=== PATIENT | female | born 1935 | race American Indian/Alaskan Native ===

== ENCOUNTER 2016-11-23 16:57 | Emergency (ER) | payer MEDICARE ==
[2016-11-23 17:25] VITALS: PULSE 93; TEMP 99.2; O2SAT 97
[2016-11-23] MEDS ORDERED: Oxycodone/Acetaminophen 5/325 mg Tab PO STA (17:58)
--- NOTE | 2016-11-23 17:59 | ED PDOC ---
Arrival/HPI - General Chief Complaint: Back Pain Time Seen by Provider: 11/23/16 17:27 Historian: Patient - History of Present Illness Narrative History of Present Illness (Text): 11/23/16 17:59 81 year old female with a past medical history that includes arthritis presents to the emergency department with chronic arthritis pain in the lower extremities for the past four months. Patient states she takes Naproxen which does not help always. Patient explains she lives at home alone and it is difficult to get around due to the pain. Denies urinary symptoms, vomiting, or fever. Time/Duration: > month Symptom Onset: Gradual Symptom Course: Unchanged Modifying Factors (Text): None Associated Symptoms (Text): None Past Medical History - Provider Review Nursing Documentation Reviewed: Yes - Cardiac Hx Hypertension: Yes - Musculoskeletal/Rheumatological Hx Arthritis: Yes - Psychiatric Hx Substance Use: No Family/Social History - Physician Review Nursing Documentation Reviewed: Yes Family/Social History: Unknown Family HX Smoking Status: Never Smoked Hx Alcohol Use: No Hx Substance Use: No Allergies/Home Meds Allergies/Adverse Reactions: Allergies No Known Allergies Allergy (Verified 11/23/16 17:21) Review of Systems - Physician Review All systems were reviewed & negative as marked: Yes - Review of Systems Respiratory: absent: SOB Gastrointestinal: absent: Vomiting Genitourinary Female: absent: Dysuria, Frequency, Hematuria Musculoskeletal: Other (lower extremity pain) Physical Exam - Physical Exam Narrative Physical Exam (Text): Constitutional: No acute distress. Head: Normocephalic. Atraumatic. Eyes: PERRL. ENT: Moist mucous membranes. Neck: Supple. Cardiovascular: Regular rate. Chest: No tenderness. Respiratory: Clear to auscultation bilaterally. GI: Soft. Nontender. Nondistended. Back: No CVA tenderness. No midline tenderness. Musculoskeletal: FROM x 4. Skin: No rash. Neurologic: Alert, no focal deficit. Motor intact x4. Vital Signs Reviewed: Yes Vital Signs Temp Pulse Resp BP Pulse Ox 11/23/16 17:23 99.2 F 93 H 18 140/69 97 Temperature: Afebrile Blood Pressure: Normal Pulse: Regular Respiratory Rate: Normal Appearance: Positive for: Well-Appearing, Non-Toxic, Comfortable Pain Distress: None Mental Status: Positive for: Alert and Oriented X 3 Medical Decision Making ED Course and Treatment: Impression: 81 year old female with history of arthritis presents with chronic arthritis pain in the lower extremities for 4 months. Plan: -- Percocet -- Reassess and disposition Prior Visits: Notes and results from previous visits were reviewed. Patient last seen in the ED on 05/03/16 for lower extremity pain and discharged with Percocet. Progress Notes: Patient states her daughter will be coming to take her home. Advised patient on the risks of taking narcotic medication including addiction and sedation and told her that she will have to follow up with PMD or pain management for further treatment. Patient verbally expressed understanding. Daughter at bedside understands and will have patient f/u with pain management. - Medication Orders Current Medication Orders: Discontinued Medications Oxycodone/Acetaminophen (Percocet 5/325 Mg Tab) 1 tab PO STAT STA Stop: 11/23/16 17:59 Last Admin: 11/23/16 18:07 Dose: 1 TAB - Scribe Statement The provider has reviewed the documentation as recorded by the Eduin Rice Provider Scribe Attestation: All medical record entries made by the Eduin were at my direction and personally dictated by me. I have reviewed the chart and agree that the record accurately reflects my personal performance of the history, physical exam, medical decision making, and the department course for this patient. I have also personally directed, reviewed, and agree with the discharge instructions and disposition. Disposition/Present on Arrival - Present on Arrival Any Indicators Present on Arrival: No History of DVT/PE: No History of Uncontrolled Diabetes: No Urinary Catheter: No History of Decub. Ulcer: No History Surgical Site Infection Following: None - Disposition Have Diagnosis and Disposition been Completed?: Yes Diagnosis: Arthritis Disposition: HOME/ ROUTINE Disposition Time: 19:10 Patient Plan: Discharge Condition: STABLE Discharge Instructions (ExitCare): Chronic Pain (ED) Prescriptions: oxyCODONE/Acetaminophen [Percocet 5/325 mg Tab] 1 tab PO Q6 #10 tab
[2016-11-23 19:25] VITALS: BP 126/65; RESP 19
== END 2016-11-23 19:26 | disposition home or self-care (01) ==
LOC: ED 16:57
DX: M13.88 Other specified arthritis, other site (principal)

== ENCOUNTER 2016-11-28 14:08 | Inpatient (IN) | payer MEDICARE ==
[2016-11-28 14:16] VITALS: BMI 23.3
[2016-11-28] MEDS ORDERED: Sodium Chloride 0.9% 1,000 ML IV STA (14:36)
--- NOTE | 2016-11-28 14:54 | ED PDOC ---
Arrival/HPI - General Chief Complaint: Altered Mental Status Time Seen by Provider: 11/28/16 14:35 Historian: Patient, Family (Son) - History of Present Illness Narrative History of Present Illness (Text): 11/28/16 14:46 81 year old female presents to the emergency department after reported seizure like episode prior to arrival. Son describes 3-4 minutes of generalized shaking. Son states he caught the patient before she hit the ground. Patient does not remember the episode. Patient denies any complaints at this time. Time/Duration: Prior to Arrival Symptom Onset: Sudden Symptom Course: Unchanged Modifying Factors (Text): None Associated Symptoms (Text): None Past Medical History - Provider Review Nursing Documentation Reviewed: Yes - Cardiac Hx Cardiac Disorders: Yes Hx Hypertension: Yes - Pulmonary Hx Respiratory Disorders: No - Neurological Hx Neurological Disorder: No - HEENT Hx HEENT Disorder: No - Renal Hx Renal Disorder: No - Endocrine/Metabolic Hx Endocrine Disorders: No - Hematological/Oncological Hx Blood Disorders: No - Musculoskeletal/Rheumatological Hx Musculoskeletal Disorders: Yes Hx Arthritis: Yes - Gastrointestinal Hx Gastrointestinal Disorders: No - Genitourinary/Gynecological Hx Genitourinary Disorders: No - Psychiatric Hx Psychophysiologic Disorder: No Hx Substance Use: No Family/Social History - Physician Review Nursing Documentation Reviewed: Yes Family/Social History: Unknown Family HX Smoking Status: Never Smoked Hx Alcohol Use: No Hx Substance Use: No Allergies/Home Meds Allergies/Adverse Reactions: Allergies No Known Allergies Allergy (Verified 11/23/16 17:21) Review of Systems - Physician Review All systems were reviewed & negative as marked: Yes Physical Exam - Physical Exam Narrative Physical Exam (Text): - Review of Systems Constitutional: Normal. absent: Fatigue, Weight Change, Fevers Eyes: Normal ENT: Normal Respiratory: Normal absent: SOB, Cough, Sputum Cardiovascular: Normal absent: Chest pain, Palpitations, Syncope Gastrointestinal: Normal absent: Abdominal pain, Diarrhea, Nausea, Vomiting Genitourinary: Normal. absent: Dysuria, Frequency, Hematuria Musculoskeletal: Normal. absent: Arthralgias, Back Pain, Neck Pain Skin: Normal Neurological: Seizure absent: Focal Weakness Endocrine: Normal Hemo/Lymphatic: Normal Psychiatric: Normal - Physical exam Patient appears age appropriate, speaking full sentences without difficulty - Systems Exam Head: Present: Atraumatic, Normocephalic Pupils: Present: PERRL Extraocular Muscles: Present: EOMI Conjunctiva: Present: Normal Mouth: Present: Moist Mucous Membranes Neck: Present: Normal Range of Motion. No: MIDLINE TENDERNESS, Paraspinal Tenderness Respiratory/Chest: Present: Clear to Auscultation, Good Air Exchange. No: Respiratory Distress, Accessory Muscle Use, Tachypneic Cardiovascular: Present: Regular Rate and Rhythm, Normal S1, S2, Peripheral Pulses Present. No: Murmurs Abdomen: Present: Normal Bowel Sounds, No: Tenderness, Peritoneal Signs, Rebound, Guarding, Distention Back: Present: Normal Inspection. No: Midline Tenderness, Paraspinal Tenderness Upper Extremity: Present: Normal Inspection. No: Cyanosis, Edema Lower Extremity: Present: Trace non-pitting edema bilaterally, L>R Neurological: Present: GCS=15, Speech Normal, cranial nerves II through XII fully intact with no cerebellar abnormality, neuro-sensory fully intact. No focal neurological deficits. Skin: Present: Warm, Dry, Normal Color. No: Rashes Lymphatic: Present: OX3, NI, NC Psychiatric: Present: Alert, Oriented x 3, Normal Insight, Normal Concentration Vital Signs Reviewed: Yes Vital Signs Temp Pulse Resp BP Pulse Ox 11/28/16 15:56 85 20 148/73 98 11/28/16 14:16 98.5 F 80 17 133/64 Temperature: Afebrile Blood Pressure: Normal Pulse: Regular Respiratory Rate: Normal Appearance: Positive for: Well-Appearing, Non-Toxic, Comfortable Pain Distress: None Mental Status: Positive for: Alert and Oriented X 3 Finger Stick Blood Glucose: 116 Medical Decision Making ED Course and Treatment: Impression: 81 year old female presents to the emergency department after reported seizure like episode prior to arrival. On physical exam, patient has trace non-pitting edema bilaterally, L>R. No tongue injury noted, no focal neurological deficits Differential Diagnosis included but are not limited to: Syncope vs seizure Plan: -- CT Head, Chest X-ray -- IV fluids -- Labs -- Reassess and disposition Prior Visits: Notes and results from previous visits were reviewed. Patient last seen in the ED on 11/23/16 for chronic lower extremity pain and discharged home. Progress Notes: EKG shows NSR at [address]-segment elevations, normal intervals. Interpreted by me. 11/28/16 18:12 dw HERMEL DELOR, states pt has +LLE DVT pt denies any cp/sob/san. lovenox ordered Chest xray interpreted by ED physician shows no pneumothorax, no cardiomegaly, no infiltrates 11/28/16 18:31 pt states she has no PMD at [facility]. Dr. Herbert marti, awaiting callback pt and daughter aware of and agree with admission plan 11/28/16 18:[address] Godinez, agrees with admission to his service, asked for CTA. order placed. - Lab Interpretations Lab Results: 11/28/16 15:33 11/28/16 15:33 Lab Results 11/28/16 15:33: WBC 9.4, RBC 3.82, Hgb 11.7 L, Hct 36.0, MCV 94.2, MCH 30.6, MCHC 32.5, RDW 13.1, Plt Count 326, MPV 9.6, Gran % 80.7 H, Lymph % (Auto) 12.2 L, [place] % (Auto) 6.3 H, Eos % (Auto) 0.7 L, Baso % (Auto) 0.1, Gran # 7.57 H, Lymph # 1.2, [place] # 0.6, Eos # 0.1, Baso # 0.01, PT 10.7, INR 0.99, APTT 27.2, Sodium 137, Potassium 3.9, Chloride 96 L, Carbon Dioxide 30, Anion Gap 15, BUN 10, Creatinine 1.0, Est GFR ( Amer) > 60, Est GFR (Non-Af Amer) 53, Random Glucose 116 H, Calcium 9.4, Total Bilirubin 1.2, AST 68 H, ALT 35, Alkaline Phosphatase 284 H, Lactate Dehydrogenase 656, Total Creatine Kinase 41 , Troponin I < 0.01, NT-Pro-B Natriuret Pep 97.4, Total Protein 8.5 H, Albumin 3.9, Globulin 4.7, Albumin/Globulin Ratio 0.8 L - RAD Interpretation Radiology Orders: 11/28/16 14:35 HEAD W/O CONTRAST [CT] Stat 11/28/16 14:36 CHEST ONE VIEW [RAD] Stat 11/28/16 15:51 DUPLEX LOWER EXTRM VEIN BILAT [US] Stat 11/28/16 18:46 ANGIO CHEST PE PROTOCOL [CT] Stat - EKG Interpretation Interpreted by ED Physician: Yes Type: 12 lead EKG - Medication Orders Current Medication Orders: Discontinued Medications Enoxaparin Sodium (Lovenox) 60 mg SC STAT STA PRN Reason: Protocol Stop: 11/28/16 18:12 Sodium Chloride (Sodium Chloride 0.9%) 1,000 mls @ 1,000 mls/hr IV .Q1H STA Stop: 11/28/16 15:35 Last Admin: 11/28/16 16:14 Dose: 1,000 MLS/HR eMAR Start Stop Document 11/28/16 16:14 OCS (Rec: 11/28/16 16:14 OCS [id number]) Intravenous Solution Start Date 11/28/16 Start Time 16:14 - Scribe Statement The provider has reviewed the documentation as recorded by the Eduin Rice Provider Scribe Attestation: All medical record entries made by the Danitaibe were at my direction and personally dictated by me. I have reviewed the chart and agree that the record accurately reflects my personal performance of the history, physical exam, medical decision making, and the department course for this patient. I have also personally directed, reviewed, and agree with the discharge instructions and disposition. Disposition/Present on Arrival - Present on Arrival Any Indicators Present on Arrival: No History of DVT/PE: No History of Uncontrolled Diabetes: No Urinary Catheter: No History of Decub. Ulcer: No History Surgical Site Infection Following: None - Disposition Have Diagnosis and Disposition been Completed?: Yes Diagnosis: Deep vein thrombosis (DVT), Syncope Disposition: HOSPITALIZED Disposition Time: 18:51 Patient Plan: Admission Condition: FAIR Discharge Instructions (ExitCare): Syncope (ED)
[2016-11-28 15:47] LABS: ADD MANUAL DIFF? NO
[2016-11-28 16:09] LABS: ALB/GLOB RATIO 0.8 (1.1-1.8); ALKALINE PHOSPHATASE 284 U/L (38-133); ALT/SGPT 35 U/L (7-56); AST/SGOT 68 U/L (15-39); BILIRUBIN,TOTAL 1.2 mg/dL (0.2-1.3); BLOOD UREA NITROGEN 10 mg/dL (7-21); CALCIUM 9.4 mg/dL (8.4-10.5); CARBON DIOXIDE 30 mmol/L (21-33); CHLORIDE 96 mmol/L (98-107); GFR AFRICAN-AMERICAN > 60; GLUCOSE,RANDOM 116 mg/dL (70-110); POTASSIUM 3.9 mmol/L (3.6-5.0); SODIUM 137 mmol/L (132-148); TOTAL PROTEIN 8.5 g/dL (5.8-8.3)
[2016-11-28 16:11] LABS: BASO # 0.01 K/mm3 (0.0-2.0); BASO % 0.1 % (0.0-3.0); EOS # 0.1 (0.0-0.7); EOS % 0.7 % (1.5-5.0); GRAN # 7.57 (1.4-6.5); GRAN % 80.7 % (50.0-68.0); LYMPH # 1.2 (1.2-3.4); LYMPH % 12.2 % (22.0-35.0); MEAN CELL VOLUME 94.2 fL (80.0-105.0); MEAN CORPUSCULAR HEMOGLOBIN 30.6 pg (25.0-35.0); MEAN CORPUSCULAR HGB CONC 32.5 g/dl (31.0-37.0); MEAN PLATELET VOLUME 9.6 fl (7.0-11.0); MONO # 0.6 (0.1-0.6); MONO % 6.3 % (1.0-6.0); PLATELET COUNT 326 10^3/uL (120.0-450.0); RED CELL DISTRIBUTION WIDTH 13.1 % (11.5-14.5); WHITE BLOOD COUNT 9.4 10^3/ul (4.5-11.0)
[2016-11-28 16:26] LABS: TROPONIN I < 0.01 ng/mL
[2016-11-28 16:31] LABS: INR 0.99 (0.93-1.08); PARTIAL THROMBOPLASTIN TIME 27.2 Seconds (23.7-30.8)
[2016-11-28] MEDS ORDERED: Enoxaparin 60 mg Syringe SC STA (18:11)
--- NOTE | 2016-11-28 18:51 | CT ---
PROCEDURE: CT HEAD WITHOUT CONTRAST. HISTORY: seizure COMPARISON: None available. TECHNIQUE: Axial computed tomography images were obtained through the head/brain without intravenous contrast. Radiation dose: Total exam DLP = 852.02 mGy-cm. This CT exam was performed using one or more of the following dose reduction techniques: Automated exposure control, adjustment of the mA and/or kV according to patient size, and/or use of iterative reconstruction technique. FINDINGS: HEMORRHAGE: No intracranial hemorrhage. BRAIN: Diffuse atrophy with prominence of the ventricles and sulci noted. No mass effect or edema. Intracranial atherosclerotic calcifications. Bilateral basal ganglia calcifications. Scattered periventricular and subcortical white matter hypodensities, which are nonspecific, but often seen with chronic microvascular ischemic disease. Please note that MRI with diffusion imaging is more sensitive in the detection of acute ischemic event. VENTRICLES: No hydrocephalus. CALVARIUM: Unremarkable. PARANASAL SINUSES: Mucosal thickening of the ethmoid air cells and bilateral maxillary sinuses, right greater than left. MASTOID AIR CELLS: Unremarkable as visualized. No inflammatory changes. OTHER FINDINGS: None. IMPRESSION: Generalized atrophy. Nonspecific white matter changes.
--- NOTE | 2016-11-28 18:52 | CARD ---
APPROVED REPORT EKG Measurement Heart [id number] <Conclusion> Normal sinus rhythm Normal ECG
[2016-11-28] MEDS ORDERED: Iohexol 350 MG/100 ML VIAL ONE (19:47)
--- NOTE | 2016-11-28 21:07 | US ---
HISTORY: Leg pain and swelling. Evaluate for DVT PHYSICIAN(S): García Pettit MD. TECHNIQUE: Duplex sonography and color-flow Doppler with graded compression were used to evaluate the deep venous systems of both lower extremities. FINDINGS: Occlusive thrombus is noted in the left common femoral vein. Thrombus is somewhat echogenic. Sh thrombus is noted in the proximal left profunda femoral vein and throughout the left femoral vein. Occlusive thrombus is also noted in the left popliteal vein and visualized left tibial veins. There is no sonographic evidence for deep venous thrombosis in the visualized segments of the right lower extremity IMPRESSION: Extensive occlusive thrombus in the left common femoral vein, femoral vein, popliteal vein, and proximal left profunda femoral vein. The superior extent of the thrombus is not defined. The patient may benefit from a CT scan with IV contrast of the abdomen and pelvis to evaluate the IVC and iliac veins.
--- NOTE | 2016-11-28 21:25 | CT ---
EXAM: CT Angiography Chest With Intravenous Contrast CLINICAL HISTORY: 81 years old, female; Pain; Chest wall pain; Additional info: R/O pe TECHNIQUE: Axial computed tomographic angiography images of the chest with intravenous contrast using pulmonary embolism protocol. This CT exam was performed using one or more of the following dose reduction techniques: automated exposure control, adjustment of the mA and/or kV according to patient size, and/or use of iterative reconstruction technique. MIP reconstructed images were created and reviewed. Coronal and sagittal reformatted images were created and reviewed. CONTRAST: 100 mL of OMNI administered intravenously. COMPARISON: No relevant prior studies available. FINDINGS: Limitations: Motion artifact - mild. Pulmonary arteries: No definite pulmonary embolism. Aorta: Mild atherosclerotic disease. No aortic aneurysm. Lungs: Minimal atelectasis/scarring. No consolidation. Early centrilobular emphysematous changes. 0.2 cm RIGHT upper lobe nodule. Pleural space: No significant effusion. No pneumothorax. Heart: No cardiomegaly. No significant pericardial effusion. Bones/joints: Degenerative changes of spine. No acute fracture. Soft tissues: Unremarkable. Lymph nodes: No pathologically enlarged lymph nodes. Kidneys and ureters: Probable few renal cysts. IMPRESSION: 1. No definite CT evidence of pulmonary embolism. 2. Pulmonary nodule. For low-risk patients, no follow-up is necessary. For high-risk patients (smoking history or other known risk factors) recommend CT at 12 months and if unchanged, no further follow-up. 3. Incidental/non-acute findings are described above.
[2016-11-28 22:02] LABS: URINE BILIRUBIN SMALL (NEGATIVE); URINE BLOOD NEGATIVE (NEGATIVE); URINE GLUCOSE (UA) NEGATIVE (NEGATIVE); URINE KETONE TRACE mg/dL (NEGATIVE); URINE LEUKOCYTE ESTERASE SMALL Leu/uL (NEGATIVE); URINE PROTEIN 30 mg/dL (<30 mg/dL)
[2016-11-28 22:07] LABS: URINE APPEARANCE CLEAR (CLEAR); URINE COLOR DARK YELLOW (YELLOW)
[2016-11-28 22:16] LABS: CHOLESTEROL 206 mg/dL (130-200)
[2016-11-28 22:35] LABS: T4 9.4 ug/dL (5.5-11.0)
[2016-11-28 22:36] LABS: FREE T4 1.47 ng/dL (0.78-2.19)
[2016-11-28] MEDS ORDERED: Iohexol 240 (50 ml) ONE (22:38)
[2016-11-28 22:49] LABS: THYROID STIMULATING HORMONE 0.88 mIU/mL (0.46-4.68)
[2016-11-28 22:53] LABS: URINE BACTERIA MOD (NEG)
--- NOTE | 2016-11-29 03:52 | CT ---
EXAM: CT Abdomen and Pelvis With Intravenous Contrast CLINICAL HISTORY: 81 years old, female; Pain; Abdominal pain; Generalized; Additional info: Dvt TECHNIQUE: Axial computed tomography images of the abdomen and pelvis with intravenous contrast. This CT exam was performed using one or more of the following dose reduction techniques: automated exposure control, adjustment of the mA and/or kV according to patient size, and/or use of iterative reconstruction technique. Coronal and sagittal reformatted images were created and reviewed. COMPARISON: No relevant prior studies available. FINDINGS: Limitations: Lack of intravenous contrast. Lower thorax: See chest CT report for additional details. ABDOMEN: Liver: Unremarkable. No mass. Gallbladder and bile ducts: No calcified stones. No ductal dilation. Pancreas: No ductal dilation. No mass. Spleen: No splenomegaly. Adrenals: No mass. Kidneys and ureters: Few renal cysts. Contrast within renal collecting system. No hydronephrosis. Stomach and bowel: Few scattered diverticula within colon. No associated inflammatory stranding. No definite mural thickening. No obstruction. Appendix: Normal caliber. No inflammation. PELVIS: Bladder: Mild haziness about bladder. Reproductive: Unremarkable as visualized. Subperitoneal space: Extensive stranding/fluid in presacral space. ABDOMEN and PELVIS: Intraperitoneal space: No significant fluid collection. No free air. Bones/joints: Degenerative changes of hips and spine. No acute fracture. Soft tissues: Few foci of air within RIGHT abdominal wall, nonspecific. Vasculature: IVC filter. [id number] atherosclerotic disease. Stranding about distal IVC, common iliac, external iliac, internal iliac, LEFT common femoral/superficial femoral/profunda femoral veins. No abdominal aortic aneurysm. Lymph nodes: No pathologically enlarged lymph nodes. IMPRESSION: 1. Stranding about veins concerning for thrombosis. 2. Presacral stranding/fluid, nonspecific but may represents venous congestion. 3. Possible cystitis. Correlate with urinalysis. 4. Incidental/non-acute findings are described above.
[2016-11-29 07:01] LABS: ADD MANUAL DIFF? NO
[2016-11-29 07:13] LABS: BASO # 0.02 K/mm3 (0.0-2.0); BASO % 0.2 % (0.0-3.0); EOS # 0.1 (0.0-0.7); EOS % 0.9 % (1.5-5.0); GRAN # 5.41 (1.4-6.5); GRAN % 63.6 % (50.0-68.0); HEMATOCRIT 31.5 % (36.0-48.0); LYMPH # 2.1 (1.2-3.4); LYMPH % 24.8 % (22.0-35.0); MEAN CELL VOLUME 93.8 fL (80.0-105.0); MEAN CORPUSCULAR HEMOGLOBIN 30.1 pg (25.0-35.0); MEAN CORPUSCULAR HGB CONC 32.1 g/dl (31.0-37.0); MEAN PLATELET VOLUME 9.8 fl (7.0-11.0); MONO # 0.9 (0.1-0.6); MONO % 10.5 % (1.0-6.0); PLATELET COUNT 354 10^3/uL (120.0-450.0); RED CELL DISTRIBUTION WIDTH 13.1 % (11.5-14.5); WHITE BLOOD COUNT 8.5 10^3/ul (4.5-11.0)
[2016-11-29 07:16] LABS: ALB/GLOB RATIO 0.8 (1.1-1.8); ALKALINE PHOSPHATASE 227 U/L (38-133); ALT/SGPT 55 U/L (7-56); AST/SGOT 75 U/L (15-39); BILIRUBIN,DIRECT 0.5 mg/dL (0.0-0.4); BLOOD UREA NITROGEN 9 mg/dL (7-21); CALCIUM 8.6 mg/dL (8.4-10.5); CARBON DIOXIDE 28 mmol/L (21-33); CHLORIDE 98 mmol/L (95-110); GFR AFRICAN-AMERICAN > 60; GLUCOSE,RANDOM 81 mg/dL (70-110); MAGNESIUM 2.2 mg/dL (1.7-2.2); POTASSIUM 3.5 mmol/L (3.6-5.0); SODIUM 137 mmol/L (132-148); TOTAL PROTEIN 7.3 g/dL (5.8-8.3)
--- NOTE | 2016-11-29 08:16 | RAD ---
PROCEDURE: CHEST RADIOGRAPH, 1 VIEW HISTORY: cough COMPARISON: None available. FINDINGS: LUNGS: Clear. PLEURA: No pneumothorax or pleural fluid seen. CARDIOVASCULAR: Normal. OSSEOUS STRUCTURES: No significant abnormalities. VISUALIZED UPPER ABDOMEN: Normal. OTHER FINDINGS: None. IMPRESSION: No active disease.
[2016-11-29] MEDS: Potassium Chloride 40 mEq/30 ml LIQ UD PO SCH ×2 (08:39→11:54)
[2016-11-29] MEDS: Pantoprazole 20 mg EC Tab PO SCH ×2 (08:39→18:35)
--- NOTE | 2016-11-29 09:09 | HP ---
HISTORY OF PRESENT ILLNESS: The patient is an 81-year-old female who presented to the Emergency [facility] today, 11/28, complaining of patient having been witnessed by the family member to have a seizure-l sona activity 30 minutes prior to arrival. The patient came to the Emergency Room as ambulatory walk- in. According to the ER physician evaluation, the patient came to the Emergency Room for reported se izure-like episode. Prior to arrival, the patient's son described 2-4 minutes of generalized shaking . The patient's son caught the patient before she "hit the ground." The patient does not recall any recollection of any events. The patient denies any tongue biting or bowel or bladder incontinence. REVIEW OF SYSTEMS: A 13-system review was positive for dictated above. The patient's came to [facility] Emergency Room. The patient was found to have swelling of both legs, left more than the right and the patient underwent a venous Doppler which was positive for DVT. CODE STATUS: Full code. LIVING WILL AND ADVANCED DIRECTIVE: None. ALLERGIES: None. HEIGHT: 5 feet 5 inches. BODY MASS INDEX: 23. HOME MEDICATIONS: Tramadol 50 mg 3 times a day and Percocet 5/325 every 6 hours. SOCIAL HISTORY: Denies smoking. Denies alcohol. Denies substance abuse. Denies communicable trans missible disease. PAST MEDICAL AND SURGICAL HISTORY: History of hypertension, history of arthritis, history of gait dy sfunction, history of questionable DVT, significant for history of hyperlipidemia, hypercholesterolem ia, history of proteinuria, history of bacteriuria, significant for degenerative joint disease of the knees with tricompartmental degenerative joint disease and osteoarthritis of the knees. 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 Also, significant for history o f degenerative joint disease of the femur, history of less than 50% bilateral internal carotid artery stenosis, history of left renal simple cyst. 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 The patient seen on stretcher #8 in the Emergency Room. The patient's son and daughter at bedside. PHYSICAL EXAMINATION: GENERAL: The patient is lying in the bed. The patient is comfortable. The patient does not appear to be in any distress at this time. HEAD: Normocephalic, atraumatic. HEENT: Shows pinkish, pale conjunctivae, anicteric sclerae. No oropharyngeal lesion. NECK: Questionable soft carotid bruit. CHEST: Kyphosis. LUNGS: Shows no rales, crackles, or wheezing. CARDIOVASCULAR: S1, S2, regular rhythm. Questionable soft systolic murmur right second intercostal space, left sternal border. ABDOMEN: Soft, positive bowel sounds. GENITALIA: Female. RECTAL: Deferred. EXTREMITIES: Shows pitting edema of the lower extremity, left more than the right. Positive b ilateral calf tenderness, positive Homans signs, left more than the right. Positive calf tenderness. VASCULAR: Palpable pulses. MUSCULOSKELETAL: Shows a body mass index of 23.3. NEUROLOGIC: Cranial nerves II-XII limited. Gait examination not tested. PSYCHIATRIC: Negative for anxiety, depression. Negative for auditory and visual hallucinations. Ne gative for suicidal or homicidal ideation. GAIT: Not tested. VITAL SIGNS: Temperature 98.5, pulse 80-85, blood pressure 133/64-148/78, respirations 17-20, O2 sat 97-98%. DIAGNOSTIC DATA: Significant lab, hemoglobin and hematocrit 11.7 and 36.0, granulocytes 81%. ESR is 6. PT/PTT is normal 10.7 and 27.2. Sodium 137, potassium 3.9, chloride 96, CO2 30, anion gap 15, B UN 10, creatinine 1.0, GFR greater than 60, glucose 116, calcium 9.4, AST 68, alk phos 284, troponin 0.01. BNP 97.4. Cholesterol 206, LDL 98, HDL 39. TSH 0.88, T4 9.4. Urine pH 6.0, specific gravity 1.015, protein 30, trace ketones, small bilirubin, small leukocyte esterase, moderate bacteria. The patient had a CT of the head done because of patient having seizure-like activity versus near syncop e. CT of the head shows diffuse cerebral cortical atrophy of the brain with ventriculomegaly and kyle ateral basal ganglia calcification and small vessel ischemic disease of the brain and chronic microva scular ischemic disease of the brain. The patient had a venous Doppler of the lower extremity done, which shows left common femoral vein, occlusive thrombus echogenic and left profunda femoral vein thr ombosis throughout the left femoral vein, occlusive thrombus in the left popliteal vein and left tibi al vein. An ultrasound of the lower extremity shows extensive occlusive thrombosis of the left commo n femoral vein, femoral vein, popliteal vein and proximal left profunda femoral vein and superior ext ensive thrombosis is not defined. Chest CTA was done for evaluation of pulmonary embolism, shows ate lectasis, emphysema, right upper lobe 0.2 cm nodule. Degenerative changes of the spine noted. The brandon pollard's EKG in the Emergency Room was reviewed which showed sinus rhythm. The patient was seen in the Emergency Room by Dr. Kincaid. The patient was treated for DVT by lito Lewisnox therapeutic dose. The patient's family and the daughter were explained about the patient's need for hospitalization by Dr. Kincaid, which they acknowledged. IMPRESSION AND PLAN: 1. Questionable syncope versus near syncope versus seizure or seizure-like activity. 2. Hypertension. 3. Left common femoral vein, left common femoral vein, left popliteal vein and left proximal profund a femoral vein extensive occlusive thrombosis with undefined superior of the thrombus. 4. Bilateral venous stasis of the lower extremity. 5. Hypertension. 6. Normocytic anemia. 7. Granulocytosis. 8. Hyperglycemia. 9. Transaminitis. 10. Hypercholesterolemia. 11. Ketonuria, proteinuria, pyuria, bacteriuria. 12. Pulmonary atelectasis and scarring with emphysema. 13. Right upper lobe 0.2 cm nodule. 14. Degenerative joint disease of the spine. 15. Renal cyst. 16. Cerebral cortical atrophy of the brain with bilateral basal ganglia calcification and small vess el ischemic disease of the brain and chronic microvascular ischemic disease of the brain. 17. Bilateral maxillary sinus and ethmoid air cell mucosal thickening. 18. Cerebral cortical atrophy of the brain. 19. History of degenerative joint disease of the hips and knees. PLAN: At this time, the patient has been ordered a thyroid panel, B12, folate, vitamin D, C-reactive protein and hypercoagulable workup has been ordered. Urine culture has been ordered. Neurology con sultation with Dr. Green has been ordered. The patient has been started on Lasix 40 daily, Lipitor 40 mg daily. The patient was given Lovenox 60 mg subQ stat in the Emergency Room. The patient is star sravan on GI prophylaxis. The patient will be started on Eliquis 10 mg twice a day for 1 week [place]. The patient will be ordered serial labs. The patient has been ordered carotid Doppler, MRI/MR A of the brain and CAT scan of the abdomen and pelvis, p.o. contrast has been ordered. EEG has been ordered. Heart healthy diet has been ordered. The patient will be ordered out of bed to recliner. The patient will be ordered TCU evaluation. The patient will be ordered hematology oncology consulta tion. The patient will be ordered serial labs. The patient's further management will be dependent u lyla the patient's clinical condition, hemodynamic status, and as per patient's response to therapeuti c intervention, and as evaluation and recommendation by hematology oncology, and neurology, and [facility] er diagnostic therapeutic intervention and . The patient's condition, diagnosis, need for hospi talization, need for further diagnostic therapeutic intervention, need for evaluation by multiple [facility] er physicians and consultants was discussed and I explained to the patient and the patient's daughter and the son who are present at the bedside. All questions and concerns answered to their satisfacti on. All of the above was explained to the patient and the patient's daughter and the son in layman's language. All questions and concerns answered. Dictated and electronically signed, not read. John Godinez MD cc: [id number] TT: 11/29/2016 09:09:15 severiano
--- NOTE | 2016-11-29 11:16 | US ---
PROCEDURE: Bilateral carotid artery duplex ultrasound HISTORY: Carotid stenosis PHYSICIAN(S): García Pettit MD. TECHNIQUE: Duplex sonography and color-flow Doppler were used to evaluate the carotid bifurcations and limited segments of the vertebral arteries bilaterally. FINDINGS: There is mild smooth heterogeneous plaque noted at the carotid bifurcations bilaterally. The peak systolic velocity in the proximal right internal carotid artery is 82 cm/sec. This corresponds to a 20 to 39% proximal right ICA stenosis. Normal systolic velocities are noted in the proximal right external carotid artery. There is antegrade flow in the right vertebral artery. The peak systolic velocity in the proximal left internal carotid artery is 88 cm/sec. This corresponds to a 20 to 39% proximal left ICA stenosis. Normal systolic velocities are noted in the proximal left external carotid artery. There is antegrade flow in the left vertebral artery. IMPRESSION: 1. Bilateral 20-39% proximal ICA stenoses. 2. Antegrade flow in both vertebral arteries.
--- NOTE | 2016-11-29 11:41 | PN ---
DATE: 11/29/2016 The patient is seen in room 262, bed 1. The patient is sitting up in the bed. The patient is alert, awake, responsive. The patient denies any loss of consciousness, denies any falls, denies any synco pe or near syncope. Overnight nurse's notes were reviewed. The patient slept well overnight. PHYSICAL EXAMINATION: VITAL SIGNS: T-max 98.5, heart rate telemetry shows sinus rhythm, heart rate 70s, 80s. Telemetry mo nitoring and flowsheet show sinus rhythm No arrhythmias noted. Blood pressure is noted to be 146/67 , 148/76, 154/69. Blood pressure 146/67, 154/69, respirations 18, O2 sat 95%. Intake and output not documented. HEAD: Normocephalic, atraumatic. HEENT: Shows pinkish, pale conjunctivae, anicteric sclerae, No oropharyngeal lesion. NECK: Questionable soft carotid bruit. CHEST: Kyphosis. LUNGS: Shows questionable decreased breath sounds at the left base. CARDIOVASCULAR: Shows S1, S2, regular rhythm. ABDOMEN: Soft, protuberant. Positive bowel sounds. GENITALIA: Female. RECTAL: Deferred. EXTREMITIES: Positive pitting edema of the left lower leg, positive trace swelling of the right lowe r extremity. MUSCULOSKELETAL: Shows a body mass index of 30.2. NEUROLOGIC: Cranial nerves II-XII limited. GAIT: Not tested. VASCULAR: Palpable pulses. Plantars are downward. DTRs are 2+. PSYCHIATRIC: Negative for anxiety, depression. Negative auditory or visual hallucinations. Negativ e for suicidal or homicidal ideation. DIAGNOSTICS: 11/29: WBC 8.5, hemoglobin and hematocrit 10.1 and 31.5, platelets 354. Potassium is 3. 5. LFTs are normal. AST is 75, alk phos 227. Thyroid panel is negative. The patient's abdomen and pelvis CT was noted, which was done with oral contrast. EKG from 11/28 was reviewed, which was normal. IMPRESSION AND PLAN: 1. Questionable syncope versus near syncope, etiology undetermined. 2. Questionable seizure versus seizure-like activity. 3. Hypertension. 4. Left common femoral vein, left femoral vein, left popliteal vein, and proximal left profunda femo ral vein extensive occlusive thrombus with undefined superior extent of the thrombus. 5. Hypertension. 6. Normocytic anemia. 7. Granulocytosis. 8. Hypokalemia. 9. Transaminitis. 10. Hypercholesterolemia. 11. Proteinuria, pyuria, bacteriuria. 12. Bilateral renal cysts. 13. Colonic diverticulosis. 14. Extensive stranding and fluid in the presacral and peritoneal space. 15. Degenerative joint disease of the hips and spine. 16. Inferior vena cava filter placement. 17. Stranding about distal inferior vena cava, common iliac, external iliac, internal iliac, and lef t common femoral, superficial femoral, profunda femoral vein. 18. Extensive thrombosis. 19. Presacral and subperitoneal space extensive fluid stranding, questionable venous congestion. 20. Questionable cystitis. 21. Questionable urinary tract infection. 22. Questionable urinary tract infection and cystitis. 23. Cerebral cortical atrophy of the brain with bilateral basal ganglia calcification and chronic mi crovascular ischemic disease of the brain with maxillary and ethmoid sinuses mucosal thickening. 24. Bilateral venous stasis of the lower extremity, left more than the right. 25. Pulmonary atelectasis, scarring with centrilobular emphysema. 26. A 0.2-cm right upper lobe nodule. 27. Degenerative joint disease of the spine. 28. Bilateral adrenal cysts. 29. Hyperglycemia. 30. Transaminitis. 31. History of degenerative joint disease of the spine and hips. PLAN: At this time, the patient is to be continued on telemetry. Serial labs are ordered. B12, vit douglas D25 hydroxy level is pending. Thyroid panel has been reported to be normal. The patient's hype rcoagulable workup is pending. Repeat CBC ordered. Urine culture ordered. Current consultations he matology/oncology, neurology. TCU evaluation ordered. CURRENT MEDICATIONS: 1. Eliquis 10 mg twice a day. 2. Lasix 40 mg IV daily. 3. Lipitor 40 mg daily. 4. Lovenox 60 mg subQ daily. 5. The patient is started on cefepime 1 gram IV q. 12, Protonix 20 mg daily. The patient has been ordered carotid Doppler, MRI/MRA of the brain, EEG. Heart healthy diet. Out of bed. ADDENDUM TO THE IMPRESSION: 1. Normocytic anemia. 2. Granulocytosis (resolved). 3. Hypokalemia. 4. Transaminitis. 5. Hypercholesterolemia. 6. Questionable urinary tract infection with cystitis with proteinuria, pyuria, bacteriuria. At this time, we are awaiting recommendations from neurology, hematology/oncology. The patient has b een ordered serial labs. The patient's carotid Doppler, MRI/MRA brain, and EEG will be reviewed when available. The patient has been ordered out of bed to chair. TCU evaluation ordered. The patient will be order ed physical therapy, ambulation therapy, occupational therapy. services rep referral ordered. Dictated and electronically signed, not read. John Godinez MD cc: [id number] TT: 11/29/2016 11:40:39 Confirmation # [id number] Dictation # [id number] jn
--- NOTE | 2016-11-29 11:54 | CON ---
DATE: 11/29/2016 REASON FOR CONSULTATION: Seizures. HISTORY OF PRESENT ILLNESS: The patient is an 81-year-old female who presents to the Emergency Room after reported to have seizure. Apparently, patient had 3-4 minutes of generalized shaking. The pat mike's son caught her before she hit her ground. The patient does not remember the episode and said that she does not think she has ever had a seizure. Denies any other complaints. REVIEW OF SYSTEMS: Denies any headache, dizziness, chest pain, shortness of breath, abdominal pain, constipation, diarrhea, dysuria, pyuria, cough, or sputum production. PAST MEDICAL HISTORY: Arthritis. MEDICATIONS AT HOME: Included tramadol and Percocet. ALLERGIES: No known drug allergies. SOCIAL HISTORY: Denies smoking, use of alcohol or illicit drugs. FAMILY HISTORY: Reviewed and noncontributory to the patient. PHYSICAL EXAMINATION: GENERAL: The patient is an elderly pleasant female sitting in no acute distress. VITAL SIGNS: Her blood pressure is 146/77, heart rate is 83 per minute, breathing at a rate of 16 pe r minute, temperature is 98.1 degrees Fahrenheit. HEENT: Head is normocephalic, atraumatic. NECK: Supple. There are no carotid bruits. LUNGS: Clear. CARDIOVASCULAR: S1, S2 audible. No murmurs. ABDOMEN: Soft and nontender with bowel sounds present. NEUROLOGIC EXAMINATION: MENTAL STATUS: The patient is awake, alert, oriented to month, place, knows the President. She foll ows all simple commands. CRANIAL NERVE EXAMINATION: Pupils are 3 mm bilaterally reactive to light. Visual brunson are full. Extraocular movements are intact. There is no facial asymmetry. Palate is upgoing bilaterally and t ongue is midline. MOTOR EXAMINATION: Tone is normal. Power is 5/5 bilaterally in all extremities. Reflexes +1 and sy mmetrical. Plantars downgoing bilaterally. CEREBELLAR EXAMINATION: [id number] shows no dysmetria. LABORATORY DATA: Labs reviewed, shows WBC of 8.5, hemoglobin 10.1, hematocrit of 31.5 and platelets of 354. Her sodium is 137, potassium 3.5, chloride 98, carbon dioxide 28, BUN of 9, creatinine 0.8, and glucose of 81. She had a CT scan of the head done which showed generalized atrophy, nonspecific white matter changes. IMPRESSION: New onset seizure. May have been secondary to the use of tramadol, which she was on. Did rule out a ny other central etiology responsible for seizures. RECOMMENDATIONS: 1. The patient to have MRI of the brain without contrast. 2. The patient also to have an electroencephalogram. 3. I will hold off any antiepileptic medication at present. 4. Please continue other treatment and supportive care. Thank you for the opportunity to participate in the care of this patient. Lauryn Green MD cc: [id number] TT: 11/29/2016 11:54:24 Confirmation # [id number] Dictation # [id number] jn
[2016-11-29] MEDS: Cefepime 1gm in NS 100ml 100 ML IVPB SCH ×2 (11:57→22:01)
--- NOTE | 2016-11-29 15:49 | CON ---
DATE: 11/29/2016 REASON FOR CONSULTATION: Extensive left lower extremity DVT. HISTORY OF PRESENT ILLNESS: The patient is an 81-year-old female with past medical history significa nt for multiple medical issues including arthritis and a previous history of DVT several years ago at which point patient had an IVC filter placed and did not take any anticoagulation secondary to fear of bleeding. Now, she presents with multiple episodes of left lower extremity pain and swelling and has been seen at multiple institutions including [facility] and in her prim broken arrow physician's office and was diagnosed with arthritis. Subsequently, patient had persistent pain a nd presented to the Emergency Room here as well and was found to have an extensive left lower extremi ty DVT including the common femoral veins and the popliteal veins. She is now on anticoagulation, fe els a little better. She states she has not had any screening colonoscopy, mammogram or Pap smears i n several years. She has not lost any weight. No fevers, no night sweats, no other complaints. Den ies any family history of DVTs and has not had a workup prior for hypocoagulable state. PAST MEDICAL HISTORY: As above, arthritis as well as DVT in the past. Denies any history of PE. MEDICATIONS AT HOME: Include tramadol and Percocet. ALLERGIES: No known drug allergies. SOCIAL HISTORY: Noncontributory. She is not a smoker, no alcohol use, no drug use. Lives alone. A ble to carry out all activities of daily living. FAMILY HISTORY: Noncontributory. REVIEW OF SYSTEMS: As per the HPI. PHYSICAL EXAMINATION: VITAL SIGNS: Reveal a temperature of 97.1, pulse of 94, respiratory rate of 20, and a blood pressure of 132/60. GENERAL: The patient is an elderly pleasant female sitting up in a chair in no acute distress. HEENT: Head and neck normocephalic, atraumatic. Eyes: Pupils equal, round, reactive to light and a ccommodation. Extraocular muscles are intact. There is some pallor. No icterus is noted. NECK: Supple with no adenopathy, no JVD, no thyromegaly. LUNGS: Clear to auscultation bilaterally with no rales or rhonchi. CARDIOVASCULAR: S1, S2 is heard. ABDOMEN: Positive bowel sounds. Soft, nontender, nondistended. No organomegaly is palpated. EXTREMITIES: There is left lower extremity edema as well as tenderness on palpation. No abnormaliti es in the right lower extremity. LABORATORY DATA: Her white count is 8.5, hemoglobin is 10.1, hematocrit 31.5, MCV of 92.8 and a plat elet count of 354. Coag studies are within normal limits. Chemistries within normal limits except f or a potassium of 3.5. Her LFTs are elevated with an alk phos of 227 and an ALT of 75. B12 is 311. Otherwise, all other electrolytes are within normal limits. Her CT of the chest did not show any ev idence of PE. There is a pulmonary nodule that was detected in right upper lobe, which is 0.2 cm in size, with no associated lymphadenopathy. Her CT of the abdomen and pelvis is negative and as above, her extremity ultrasound is positive for a DVT. ASSESSMENT AND PLAN: Extensive deep venous thrombosis of the left lower extremity in this elderly fe male with also prior history of deep venous thrombosis. Needs a complete hypercoagulable workup incl uding a full malignancy workup. She will need a mammogram as an outpatient as well as colonoscopy an d endoscopy. Discussed with patient's niece who was also present at the bedside. She does have anem ia which also needs a further workup. We will order iron studies at this point. May need intravenou s iron as well. Thank you for the consult. We will follow. Heavenly Garcia MD cc: [id number] TT: 11/29/2016 15:48:39 Confirmation # [id number] Dictation # [id number] sn
[2016-11-29 16:59] LABS: RETIC% 1.18 % (0.5-1.5)
[2016-11-30 05:19] LABS: HOMOCYSTEINE 8.9 umol/L (<10.4)
[2016-11-30 06:56] VITALS: O2SAT 100
[2016-11-30 07:44] LABS: ADD MANUAL DIFF? NO
[2016-11-30 07:58] LABS: BASO # 0.01 K/mm3 (0.0-2.0); BASO % 0.1 % (0.0-3.0); EOS # 0.2 (0.0-0.7); EOS % 2.8 % (1.5-5.0); GRAN # 4.31 (1.4-6.5); GRAN % 60.7 % (50.0-68.0); HEMATOCRIT 30.9 % (36.0-48.0); LYMPH % 27.9 % (22.0-35.0); MEAN CELL VOLUME 93.4 fL (80.0-105.0); MEAN CORPUSCULAR HEMOGLOBIN 30.2 pg (25.0-35.0); MEAN CORPUSCULAR HGB CONC 32.4 g/dl (31.0-37.0); MEAN PLATELET VOLUME 8.9 fl (7.0-11.0); MONO # 0.6 (0.1-0.6); MONO % 8.5 % (1.0-6.0); PLATELET COUNT 358 10^3/uL (120.0-450.0); RED CELL DISTRIBUTION WIDTH 13.2 % (11.5-14.5); WHITE BLOOD COUNT 7.1 10^3/ul (4.5-11.0)
[2016-11-30 08:05] LABS: ALB/GLOB RATIO 0.8 (1.1-1.8); ALKALINE PHOSPHATASE 233 U/L (38-133); ALT/SGPT 67 U/L (7-56); AST/SGOT 90 U/L (15-39); BILIRUBIN,DIRECT 0.5 mg/dL (0.0-0.4); BILIRUBIN,TOTAL 0.8 mg/dL (0.2-1.3); BLOOD UREA NITROGEN 10 mg/dL (7-21); CALCIUM 8.8 mg/dL (8.4-10.5); CARBON DIOXIDE 31 mmol/L (21-33); CHLORIDE 100 mmol/L (98-107); GFR AFRICAN-AMERICAN > 60; GLUCOSE,RANDOM 103 mg/dL (70-110); MAGNESIUM 2.3 mg/dL (1.7-2.2); SODIUM 140 mmol/L (132-148); TOTAL PROTEIN 7.4 g/dL (5.8-8.3)
[2016-11-30] MEDS: Pantoprazole 20 mg EC Tab PO SCH (08:09)
[2016-11-30 08:12] LABS: IRON 21 ug/dL (45-180)
--- NOTE | 2016-11-30 09:39 | PN ---
DATE: 11/30/2016 SUBJECTIVE: The patient is sitting on the bed, in no acute distress. Denies having any headache or dizziness. PHYSICAL EXAMINATION: VITAL SIGNS: Her blood pressure is 122/64, heart rate is 73 per minute, breathing at a rate of 16 pe r minute, temperature is 98.8 degrees Fahrenheit. HEENT: Head is normocephalic, atraumatic. NECK: Supple. There are no carotid bruits. LUNGS: Clear. CARDIOVASCULAR: S1, S2 audible. No murmurs. ABDOMEN: Soft and nontender with bowel sounds present. NEUROLOGIC EXAMINATION: MENTAL STATUS: The patient is awake, alert, oriented to place, year, person. She follows all simple commands. CRANIAL NERVES: Pupils are 3 mm bilaterally reactive to light. Visual brunson are full. Extraocular movements are intact. There is no facial asymmetry. Palate is upgoing bilaterally and tongue is mi dline. MOTOR: Tone is normal. Power is 5/5 bilaterally in all extremities. Eiatrb-uy-ksnn shows no dysmet radha. IMPRESSION: New onset seizure. This may have been secondary to the use of tramadol which patient wa s on. RECOMMENDATIONS: 1. The patient had an electroencephalogram done which is normal. The patient also had MRI of the br ain done which I have reviewed and shows no acute focal pathology. Please follow up the official rep ort. 2. The patient had no further episode of passing out or seizure-like activity. 3. No antiepileptic is indicated at present. 4. The patient had carotid Doppler studies which show bilateral 20-39% proximal internal carotid art kevin stenosis. 5. Please continue supportive care and other treatment. Thank you for the opportunity to participate in the care of this patient. Lauryn Green MD cc: [id number] TT: 11/30/2016 09:38:32 Confirmation # [id number] Dictation # [id number] severiano
--- NOTE | 2016-11-30 09:58 | EEG ---
DATE: 11/30/2016 INTRODUCTION: This is a digitally recorded EEG monitoring using standard EEG montages. BACKGROUND RHYTHM: The EEG shows a background activity of 7.5-8 Hz alpha activity in parietooccipita l region. The EEG activity is bilaterally symmetrical and synchronous. There is attenuation of the background activity on eye opening. A small amount of movement artifact noticed in this EEG recordin g. Drowsiness was noted by slowing of the background activity. ABNORMAL POTENTIALS: No spikes, sharp waves, or focal slowing was seen. PHOTIC STIMULATION AND HYPERVENTILATION: Photic stimulation did not reveal any abnormality. Hyperve ntilation was not performed. IMPRESSION: Normal EEG. No epileptiform activity seen in this EEG recording. Lauryn Green MD cc: [id number] TT: 11/30/2016 09:57:46 Confirmation # [id number] Dictation # [id number] gordon
--- NOTE | 2016-11-30 10:31 | MRI ---
PROCEDURE: MRI BRAIN WITHOUT CONTRAST HISTORY: SYNCOPE/SEIZURE COMPARISON: None. TECHNIQUE: Multiplanar, multisequence MR images of the brain were obtained without intravenous contrast enhancement. FINDINGS: HEMORRHAGE: None DWI: No evidence of an acute or early subacute infarction. BRAIN PARENCHYMA: No mass effect or edema. No atrophy or chronic microvascular ischemic changes. VENTRICLES: Unremarkable. No hydrocephalus. CRANIUM: Unremarkable. ORBITS: Grossly unremarkable. PARANASAL SINUSES/MASTOIDS: Clear VASCULAR SYSTEM: Skull base flow voids intact. OTHER FINDINGS: None. IMPRESSION: Unremarkable non contrast enhanced MRI of the brain.
--- NOTE | 2016-11-30 10:32 | MRI ---
PROCEDURE: Magnetic Resonance Angiography Brain HISTORY: SYNCOPE COMPARISON: None available. TECHNIQUE: 3D time of flight MR angiography of the intracranial arteries was performed. Rotating maximum intensity projection images were generated. FINDINGS: INTERNAL CEREBRAL ARTERIES: Unremarkable. The skull base, petrous, cavernous and supraclinoid segments are bilaterally widely patient. ANTERIOR CEREBRAL ARTERIES: Unremarkable. A1 and A2 segments are widely patent. Smaller distal branches unremarkable, as visualized. MIDDLE CEREBRAL ARTERIES: Unremarkable. M1 and M2 segments are widely patent. Perisylvian branches grossly symmetric. POSTERIOR CIRCULATION: Basilar Artery: Unremarkable. Distal Vertebral Arteries: Unremarkable. Posterior Cerebral Arteries: Unremarkable. Posterior Inferior Cerebellar Arteries: Unremarkable. ANEURYSM/ VASCULAR MALFORMATIONS: None. OTHER FINDINGS: None. IMPRESSION: Unremarkable MR angiography of the brain.
[2016-11-30] MEDS: Cefepime 1gm in NS 100ml 100 ML IVPB SCH (10:37)
--- NOTE | 2016-11-30 13:37 | CON ---
DATE: 11/30/2016 HISTORY OF PRESENT ILLNESS: The patient is an 81-year-old woman who was witnessed to have a seizure- like activity with loss of consciousness. The patient completely denies ever losing consciousness an d denies ever having a history of seizures. 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 In addition, she suffers from hypercholesterolemia. She denies previous cardiac history. No chest p ain, no shortness of breath. She denies diabetes mellitus. SOCIAL HISTORY: She denies smoking. REVIEW OF SYSTEMS: A 14-point review of systems was reviewed in detail. No cardiac symptomatology w as elicited. PHYSICAL EXAMINATION: VITAL SIGNS: Blood pressure is 122/64, the heart rate is in the 70s, normal sinus rhythm. NECK: Negative JVD. Negative bruits noted. LUNGS: Clear to auscultation. HEART: Revealed S1, S2 with a II/ systolic ejection murmur. EXTREMITIES: Without edema. LABORATORIES: Reveal an EKG that is unremarkable. Hemoglobin is 10. Chemistries: The magnesium is 2.3. The potassium is 4.0. LFTs are mildly elevated. IMPRESSION: 1. Syncope. 2. Seizures. 3. Anemia. 4. History of deep venous thromboses. 5. Hypercholesterolemia. Given these findings, we will need to monitor the patient on telemetry for 24 hours. Echocardiogram has been ordered. Awaiting EEG results. García Shin MD cc: [id number] TT: 11/30/2016 13:36:40 Confirmation # [id number] Dictation # [id number]
[2016-11-30 14:13] VITALS: BP 135/72; PULSE 111; RESP 20; TEMP 97
--- NOTE | 2016-11-30 14:14 | DS ---
The patient is seen in room 263, bed 1. The patient is sitting up in the bed. The patient anxiously wants to go home. The patient does not want to be in the hospital. The patient denies any seizure activity. Denies any loss of consciousness. Denies any hemoptysis, hematemesis, melena. The patien t denies any syncope. PHYSICAL EXAMINATION: VITAL SIGNS: T-max, patient is afebrile. Telemetry shows sinus rhythm, heart rate 71 and 74, blood pressure ranging from 130s, 140s and 120 systolic to diastolic in 60s and 70s, respirations 18, O2 sa t 100%. Intake/output not documented. HEAD: Normocephalic, atraumatic. HEENT: Shows pinkish, pale conjunctivae. NECK: Soft carotid bruit. CHEST: Kyphosis. LUNGS: Shows no rales, crackles, or wheezing. CARDIOVASCULAR: S1, S2, regular rhythm. ABDOMEN: Soft, positive bowel sounds. GENITALIA: Female. RECTAL: Deferred. EXTREMITIES: Show positive pitting edema of the left lower extremity. VASCULAR: Palpable pulses. MUSCULOSKELETAL: Shows a body mass index of greater than 30. NEUROLOGIC: Cranial nerves II-XII intact. GAIT: Not tested. VASCULAR: Palpable pulses. PSYCHIATRIC: Not applicable. DIAGNOSTICS: WBC 7.1, hemoglobin/hematocrit 10 and 31, platelets 358. Sodium 140, potassium 4.0, ch loride 100, CO2 31, anion gap 13, BUN 10, creatinine 0.8, GFR greater than 60, glucose 103, calcium 8 .8, magnesium 2.3. Iron is 21, iron saturation 12, TIBC 182. AST is 90, ALT 67, alkaline phosphatas e 233. Cardiac CRP is greater than 193. LFTs are normal. Vitamin D is less than 13. Cholesterol 2 06, LDL 98. B12 is 312, 311. High sensitivity C-reactive protein is greater than 15. Rheumatoid fa ctor as high as 16. Urine culture contaminated. FINAL IMPRESSION, PLAN, AND DISCHARGE DIAGNOSES: 1. Questionable syncope versus near syncope, etiology undetermined. 2. Questionable seizure versus seizure-like activity. 3. Hypertension. 4. Normocytic iron deficiency anemia. 5. Granulocytosis. 6. Transaminitis. 7. Elevated high sensitivity C-reactive protein and cardiac C-reactive protein. 8. Hypercholesterolemia with elevated LDL. 9. Hypovitaminosis D. 10. Hypokalemia. 11. Normocytic iron deficiency anemia. 12. Questionable urinary tract infection with proteinuria, ketonuria, pyuria and bacteriuria. 13. Elevated rheumatoid factor of 16. 14. Questionable urinary tract infection versus multiple species contamination. 15. Bilateral 20%-39% proximal internal carotid artery stenosis. 16. Questionable seizures versus seizure-like activity, probably secondary to Percocet versus tramad ol. 17. Extensive left lower extremity deep venous thrombosis with history of deep venous thrombosis and inferior vena cava filter placement. 18. Bilateral lower extremity venous stasis. 19. Dyslipidemia. PLAN: At this time, patient has been cleared by neurology and cardiology for discharge. The patient will be cleared for discharge after echo is done, which is ordered by cardiology. The patient will be discharged home after echo is done. DISCHARGE MEDICATIONS: 1. Eliquis 5 mg twice a day. 2. Lipitor 40 mg daily. 3. Vitamin D3 2000 units daily. 4. Lasix 40 mg p.o. daily. 5. Protonix 20 mg twice a day. The patient is discharged home with discharge followup with Dr. Godinez within 1 week. Referred to [facility] home health aide, home PT. The patient's discharge meds as per ambulatory orders sent to the [facility]. During this hospitalization, patient was extensively explained about the details of her medical condi tion, diagnosis, treatment plan, management plan, outpatient followup. The patient's outpatient workup was advised as a mammogram, EGD and colonoscopy, which was advised to the patient. Time spent in the entire discharge process, more than 45 minutes. Dictated and electronically signed, not read. John Godinez MD cc: [id number] TT: 11/30/2016 14:13:53 en
[2016-12-01 03:34] LABS: TOTAL PROTEIN, SERUM 6.5 g/dL (6.1-8.1)
[2016-12-01 14:38] LABS: CCP IGG 31 Units (<20)
[2016-12-02 06:37] LABS: CARDIOLIPIN AB (IGA) <11 APL (<=11)
[2016-12-02 06:51] LABS: B2 GLYCOPROTEIN I AB(IGA) 9 SAU (<=20); B2 GLYCOPROTEIN I AB(IGG) <9 SGU (<=20); B2 GLYCOPROTEIN I AB(IGM) <9 SMU (<=20)
== END 2016-11-30 17:29 | disposition home or self-care (01) | DRG 101 ==
LOC: ED 14:08 → ERH 18:51 → 2RNO 11-29 04:15
PROVIDERS: ADMIT Internal Medicine; ATTEND Internal Medicine
DX: R56.9 Unspecified convulsions (principal); I67.82 Cerebral ischemia; I82.402 Acute embolism and thrombosis of unspecified deep veins of left lower extremity; I11.9 Hypertensive heart disease without heart failure; E27.8 Other specified disorders of adrenal gland; J98.11 Atelectasis; G93.89 Other specified disorders of brain; I65.29 Occlusion and stenosis of unspecified carotid artery; N28.1 Cyst of kidney, acquired; R41.82 Altered mental status, unspecified; E55.9 Vitamin D deficiency, unspecified; D50.9 Iron deficiency anemia, unspecified; E78.00 Pure hypercholesterolemia, unspecified; E78.5 Hyperlipidemia, unspecified; E87.6 Hypokalemia; I87.8 Other specified disorders of veins; J43.2 Centrilobular emphysema; K57.30 Diverticulosis of large intestine without perforation or abscess without bleeding; M16.0 Bilateral primary osteoarthritis of hip; M47.9 Spondylosis, unspecified; Z86.718 Personal history of other venous thrombosis and embolism; R40.2412 Glasgow coma scale score 13-15, at arrival to emergency department; Z68.23 Body mass index [BMI] 23.0-23.9, adult; Z68.30 Body mass index [BMI] 30.0-30.9, adult; M17.0 Bilateral primary osteoarthritis of knee; G31.9 Degenerative disease of nervous system, unspecified; R91.1 Solitary pulmonary nodule; R73.9 Hyperglycemia, unspecified; R74.0 Nonspecific elevation of levels of transaminase and lactic acid dehydrogenase [LDH]; M40.209 Unspecified kyphosis, site unspecified; R79.82 Elevated C-reactive protein (CRP); N30.90 Cystitis, unspecified without hematuria; I65.23 Occlusion and stenosis of bilateral carotid arteries

== ENCOUNTER 2016-12-10 09:56 | Emergency (ER) | payer MEDICARE ==
[2016-12-10 09:56] VITALS: BMI 23.3
[2016-12-10 10:43] VITALS: TEMP 98.4
[2016-12-10 11:16] LABS: ADD MANUAL DIFF? NO
[2016-12-10 11:22] LABS: BASO # 0.02 K/mm3 (0.0-2.0); BASO % 0.3 % (0.0-3.0); EOS # 0.1 (0.0-0.7); EOS % 1.5 % (1.5-5.0); GRAN # 3.14 (1.4-6.5); GRAN % 50.8 % (50.0-68.0); HEMATOCRIT 35.5 % (36.0-48.0); LYMPH # 2.5 (1.2-3.4); LYMPH % 39.9 % (22.0-35.0); MEAN CELL VOLUME 96.2 fL (80.0-105.0); MEAN CORPUSCULAR HEMOGLOBIN 30.6 pg (25.0-35.0); MEAN CORPUSCULAR HGB CONC 31.8 g/dl (31.0-37.0); MEAN PLATELET VOLUME 9.4 fl (7.0-11.0); MONO # 0.5 (0.1-0.6); MONO % 7.5 % (1.0-6.0); PLATELET COUNT 366 10^3/uL (120.0-450.0); RED CELL DISTRIBUTION WIDTH 13.5 % (11.5-14.5); WHITE BLOOD COUNT 6.2 10^3/ul (4.5-11.0)
[2016-12-10 11:28] LABS: ALB/GLOB RATIO 0.9 (1.1-1.8); ALKALINE PHOSPHATASE 157 U/L (38-133); ALT/SGPT 27 U/L (7-56); AST/SGOT 27 U/L (15-39); BILIRUBIN,TOTAL 0.6 mg/dL (0.2-1.3); BLOOD UREA NITROGEN 10 mg/dL (7-21); CALCIUM 9.5 mg/dL (8.4-10.5); CARBON DIOXIDE 34 mmol/L (21-33); CHLORIDE 100 mmol/L (98-107); GFR AFRICAN-AMERICAN > 60; GLUCOSE,RANDOM 123 mg/dL (70-110); POTASSIUM 3.7 mmol/L (3.6-5.0); SODIUM 144 mmol/L (132-148); TOTAL PROTEIN 8.6 g/dL (5.8-8.3)
[2016-12-10 11:37] LABS: INR 1.02 (0.93-1.08)
--- NOTE | 2016-12-10 12:46 | US ---
PROCEDURE: Left lower extremity venous US HISTORY: Leg pain and swelling. Evaluate for DVT. PHYSICIAN(S): García Pettit MD. TECHNIQUE: Duplex sonography and color-flow Doppler with graded compression were used to evaluate the deep venous system of the left lower extremity. FINDINGS: There is extensive acute hypoechoic thrombus involving the left common femoral vein, left femoral vein, proximal left profunda femoral vein, and left popliteal vein. The superior extent of the thrombus is not determined. IMPRESSION: 1. Extensive left iliofemoral DVT as described above. 2. Patient may benefit from a CTA of the pulmonary arteries followed by CTA of the abdomen and pelvis to evaluate the inferior vena cava and iliac veins.
--- NOTE | 2016-12-10 13:06 | ED PDOC ---
Arrival/HPI - General Chief Complaint: Lower Extremity Problem/Injury Time Seen by Provider: 12/10/16 10:40 Historian: Patient - History of Present Illness Narrative History of Present Illness (Text): 12/10/16 13:18 Patient reports several day h/o atraumatic swelling of L lower leg. Patient admits to being recently discharged from the hospital after being hospitalized for syncopal episode and DVT, states she is unsure which leg has a DVT, however adds that when she was discharged from the hospital she had snow swelling to her legs at all. Patient states that she is on Lasix and eliquis, states that she is compliant with all of her medications. Otherwise: (-) trauma, (-) chest pain, (-) dyspnea, (-) hemoptysis, (-) fever, (-) recent surgery, (-) recent travel, (-) known malignancy. PMD Herbert Past Medical History - Provider Review Nursing Documentation Reviewed: Yes - Infectious Disease Hx of Infectious Diseases: None - Reproductive Menopause: Yes - Cardiac Hx Cardiac Disorders: Yes Hx Hypertension: Yes - Pulmonary Hx Respiratory Disorders: No - Neurological Hx Neurological Disorder: No - HEENT Hx HEENT Disorder: No - Renal Hx Renal Disorder: No - Endocrine/Metabolic Hx Endocrine Disorders: No - Hematological/Oncological Hx Blood Disorders: No - Musculoskeletal/Rheumatological Hx Arthritis: No (pt denies) Other/Comment: blood clot on legs 2017 (not sure which legs) - Gastrointestinal Hx Gastrointestinal Disorders: No Hx Gastroesophageal Reflux: Yes - Genitourinary/Gynecological Hx Genitourinary Disorders: No - Psychiatric Hx Psychophysiologic Disorder: No Hx Substance Use: No - Anesthesia Hx Anesthesia: No Hx Anesthesia Reactions: No Hx Malignant Hyperthermia: No Family/Social History - Physician Review Nursing Documentation Reviewed: Yes Family/Social History: No Known Family HX Smoking Status: Never Smoked Hx Alcohol Use: No Hx Substance Use: No Allergies/Home Meds Allergies/Adverse Reactions: Allergies No Known Allergies Allergy (Verified 12/10/16 10:25) Home Medications: Home Meds Medication Instructions Recorded Confirmed Cholecalciferol [Vitamin D 1000 IU] 1,000 iu PO DAILY 12/10/16 12/10/16 Review of Systems - Review of Systems Constitutional: Normal. absent: Fatigue, Weight Change, Fevers Respiratory: Normal. absent: SOB, Cough, Sputum Cardiovascular: Normal. absent: Chest Pain, Palpitations Gastrointestinal: Normal. absent: Abdominal Pain, Stool Changes Musculoskeletal: Normal, Other (L leg swelling). absent: Arthralgias, Back Pain , Neck Pain Skin: Normal. absent: Rash, Pruritis Physical Exam - Physical Exam Narrative Physical Exam (Text): 12/10/16 13:21 GENERAL APPEARANCE: Patient is awake, alert, oriented x 3, in no acute distress. SKIN: Warm, dry; (-) cyanosis; (-) rash. HEAD: (-) scalp swelling, (-) tenderness. EYES: (-) conjunctival pallor, (-) scleral icterus. ENMT: Pharynx: (-) erythema; airway patent: (-) stridor; mucous membranes moist. NECK: (-) tenderness, (-) stiffness, (-) lymphadenopathy, (-) thyromegaly. CHEST AND RESPIRATORY: (-) rales, (-) rhonchi, (-) wheezes, (-) pleural friction rub; breath sounds equal bilaterally. HEART AND CARDIOVASCULAR: (-) irregularity; (-) murmur, (-) gallop, (-) pericardial rub. ABDOMEN AND GI: Soft; (-) tenderness, (-) guarding, (-) rebound, (-) palpable masses, (-) CVA tenderness. EXTREMITIES: (+) 2+ pitting edema to the L lower leg with (-) tenderness and (- ) palpable cord. Opposite leg: wnl. Distal pulses: 1+ weak. NEURO AND PSYCH: Mental status as above. Cranial nerves grossly intact; strength symmetric. Vital Signs Temp Pulse Resp BP Pulse Ox 12/10/16 13:18 83 16 137/71 97 12/10/16 13:14 137/71 12/10/16 10:16 98.4 F 85 20 154/88 H 98 Medical Decision Making ED Course and Treatment: 12/10/16 13:22 81 yo F presents to the ER for L lower leg edema, was recently dx with a DVT. Reports no other symptoms. Plan: -- Labs -- Reassess and disposition -- Repeat doppler US LLE Ultrasound Doppler left lower extremity shows same DVT from prior study as per fire technician. Labs reviewed, WBC normal, BNP normal, the rest of the labs are within normal limits. Call placed to the patient's PMD. Case discussed with Dr. Godinez, he assumes that the patient is not overall compliant with her eliquis. He recommends that the patient be advised to continue all current medications especially the eliquis, recommends a dose of Lasix 40 mg IV here in the emergency room. Otherwise recommends outpatient follow-up in his office. Ultrasound and lab results discussed with the patient in great detail. Patient advised to continue taking her eliquis as instructed by Dr. Godinez. Based on history, exam and diagnostic results plan will be for outpatient follow-up. Patient states she fully agrees with and understands discharge instructions. States that she agrees with the plan and disposition. States that she has an appointment with her pmd on 12/13/16. Verbalized and repeated discharge instructions and plan. I have given the patient opportunity to ask any additional questions. Follow up with primary care physician in 1-2 days without fail. Advised to continue all medications currently. Return to the emergency room at any time for any new or worsening symptoms. - Lab Interpretations Lab Results: 12/10/16 11:15 12/10/16 11:15 Lab Results 12/10/16 11:15: WBC 6.2, RBC 3.69, Hgb 11.3 L, Hct 35.5 L, MCV 96.2, MCH 30.6, MCHC 31.8, RDW 13.5, Plt Count 366, MPV 9.4, Gran % 50.8, Lymph % (Auto) 39.9 H , Lea % (Auto) 7.5 H, Eos % (Auto) 1.5, Baso % (Auto) 0.3, Gran # 3.14, Lymph # 2.5, Lea # 0.5, Eos # 0.1, Baso # 0.02, PT 11.0, INR 1.02, APTT 28.0, Sodium 144, Potassium 3.7, Chloride 100, Carbon Dioxide 34 H, Anion Gap 14, BUN 10, Creatinine 0.8, Est GFR ( Amer) > 60, Est GFR (Non-Af Amer) > 60, Random Glucose 123 H, Calcium 9.5, Total Bilirubin 0.6, AST 27, ALT 27, Alkaline Phosphatase 157 H, NT-Pro-B Natriuret Pep 74.7, Total Protein 8.6 H, Albumin 4.0 , Globulin 4.6, Albumin/Globulin Ratio 0.9 L I have reviewed the lab results: Yes - RAD Interpretation Narrative RAD Interpretations (Text): 12/10/16 13:26 US doppler LLE: (+) same DVT noted in prior study, as per US tech. Radiology Orders: 12/10/16 10:51 DUPLEX LOWER EXTRM VEIN LEFT [US] Stat - Medication Orders Current Medication Orders: Discontinued Medications Furosemide (Lasix) 40 mg IVP STAT STA Stop: 12/10/16 13:05 Last Admin: 12/10/16 13:14 Dose: 40 MG MAR Blood Pressure Document 12/10/16 13:14 HI (Rec: 12/10/16 13:14 [place] [id number]) Blood Pressure Blood Pressure (100/60-150/90) 137/71 IVP Administration Document 12/10/16 13:14 HI (Rec: 12/10/16 13:14 [place] [id number]) Charges for Administration # of IVP Administrations 1 - PA / STAFFING RN / Resident Statement MD/DO has reviewed & agrees with the documentation as recorded. Disposition/Present on Arrival - Present on Arrival Any Indicators Present on Arrival: Yes History of DVT/PE: Yes History of Uncontrolled Diabetes: No Urinary Catheter: No History of Decub. Ulcer: No History Surgical Site Infection Following: None - Disposition Have Diagnosis and Disposition been Completed?: Yes Diagnosis: Leg edema, left Disposition: HOME/ ROUTINE Disposition Time: 13:05 Patient Plan: Discharge Condition: GOOD Discharge Instructions (ExitCare): Deep Venous Thrombosis (ED), Leg Edema (ED) Print Language: THAI Additional Instructions: Thank you for letting us take care of you today. You were treated for left leg edema, DVT. The emergency medical care you received today was directed at your acute symptoms. Continue taking all medications, elevate affected leg. Return to the Emergency Department if your symptoms worsen, do not improve, or if you have any other problems. Please contact your doctor in 2 days for re-evaluation and follow up. Bring any paperwork you were given at discharge with you along with any medications you are taking to your follow up visit. Our treatment cannot replace ongoing medical care by a primary care provider (PCP) outside of the emergency department. Thank you for allowing the [facility] team to be part of your care today. Referrals: PCP,NO [Primary Care Provider] - Follow up with primary
[2016-12-10 13:18] VITALS: BP 137/71
[2016-12-10 13:21] VITALS: PULSE 83; RESP 16; O2SAT 97
== END 2016-12-10 13:21 | disposition home or self-care (01) ==
LOC: ED 09:56
DX: R60.0 Localized edema (principal); I10 Essential (primary) hypertension
CPT/HCPCS: 80053; 83880; 85025; 85610; 85730; 93971; 96374; 99284; J1940

== ENCOUNTER 2017-03-11 15:01 | Emergency (ER) | payer MEDICARE ==
[2017-03-11 15:01] VITALS: BMI 23.3
[2017-03-11 15:17] VITALS: BP 175/93; PULSE 75; RESP 16; TEMP 98.5; O2SAT 96
--- NOTE | 2017-03-11 16:35 | ED PDOC ---
Arrival/HPI - General Chief Complaint: Lower Extremity Problem/Injury Time Seen by Provider: 03/11/17 16:03 Historian: Patient - History of Present Illness Narrative History of Present Illness (Text): 03/11/17 16:32 81-year-old female with history of previous left lower leg DVT on all of this with inferior vena cava filter presents today with a 2 to three-week history of achy right proximal anterior thigh pain. Patient denies any recent trauma or injury. Patient states she was taking Tylenol but weak ago without any improvement in her symptoms that she has recently not taken any medications for pain. She denies numbness weakness or tingling in the extremity. Patient states while at rest she has no pain. Patient states she only feels the achy severe pain when she is ambulating. Denies abdominal pain. Denies fevers or chills. Denies chest pain or shortness of breath. No other complaints Time/Duration: > week (2-3weeks) Symptom Onset: Gradual Symptom Course: Unchanged Quality: Aching Severity Level: 5 Past Medical History - Provider Review Nursing Documentation Reviewed: Yes - Travel History Have you recently traveled outside [place] w/in the past 3 mons?: No - Infectious Disease Hx of Infectious Diseases: None - Tetanus Immunization Tetanus Immunization: Unknown - Cardiac Hx Cardiac Disorders: Yes Hx Hypertension: Yes - Pulmonary Hx Respiratory Disorders: No - Neurological Hx Neurological Disorder: No - HEENT Hx HEENT Disorder: No - Renal Hx Renal Disorder: No - Endocrine/Metabolic Hx Endocrine Disorders: No - Hematological/Oncological Hx Blood Disorders: No - Musculoskeletal/Rheumatological Hx Arthritis: No (pt denies) - Gastrointestinal Hx Gastrointestinal Disorders: Yes Hx Gastroesophageal Reflux: Yes - Genitourinary/Gynecological Hx Genitourinary Disorders: No - Psychiatric Hx Psychophysiologic Disorder: No Hx Substance Use: No - Anesthesia Hx Anesthesia: No Hx Anesthesia Reactions: No Hx Malignant Hyperthermia: No Family/Social History - Physician Review Nursing Documentation Reviewed: Yes Family/Social History: Unknown Family HX Smoking Status: Never Smoked Hx Alcohol Use: No Hx Substance Use: No Allergies/Home Meds Allergies/Adverse Reactions: Allergies No Known Allergies Allergy (Verified 03/11/17 15:13) Home Medications: Home Meds Medication Instructions Recorded Confirmed Cholecalciferol [Vitamin D 1000 IU] 2,000 iu PO DAILY 12/10/16 03/11/17 Review of Systems - Review of Systems Constitutional: absent: Fatigue, Fevers Respiratory: absent: SOB, Cough Cardiovascular: absent: Chest Pain, Palpitations Gastrointestinal: absent: Abdominal Pain, Nausea, Vomiting Genitourinary Female: absent: Dysuria, Frequency Musculoskeletal: Arthralgias. absent: Back Pain, Neck Pain Skin: absent: Rash, Pruritis Neurological: absent: Headache, Dizziness Psychiatric: absent: Anxiety, Depression Physical Exam Vital Signs Reviewed: Yes Vital Signs Temp Pulse Resp BP Pulse Ox 03/11/17 15:13 98.5 F 75 16 175/93 H 96 Temperature: Afebrile Blood Pressure: Hypertensive Pulse: Regular Respiratory Rate: Normal Appearance: Positive for: Well-Appearing, Non-Toxic, Comfortable Pain Distress: None Mental Status: Positive for: Alert and Oriented X 3 - Systems Exam Head: Present: Atraumatic Mouth: Present: Moist Mucous Membranes Neck: Present: Normal Range of Motion Respiratory/Chest: Present: Clear to Auscultation, Good Air Exchange. No: Respiratory Distress, Accessory Muscle Use Cardiovascular: Present: Regular Rate and Rhythm, Normal S1, S2. No: Murmurs Abdomen: No: Tenderness Lower Extremity: Present: NORMAL PULSES, Tenderness (right leg; + ttp over anterior aspect of thigh; no edema, no erythema; full rom of hip and leg with pain. sensation and distal pulses intact. cap refill <2. ), Neurovascularly Intact, Capillary Refill < 2 s. No: CALF TENDERNESS, Swelling, Erythema, Deformity Neurological: Present: GCS=15 Skin: Present: Warm, Dry, Normal Color. No: Rashes Psychiatric: Present: Alert, Oriented x 3 Medical Decision Making ED Course and Treatment: 03/11/17 17:47 81yr old female with right leg pain x 2-3 weeks. no trauma or injury tramadol given for pain xrays right hip: no fracture + djd xrays right femur; no fracture US lower extremity; no right leg dvt, + known, left leg dvt. pt currently on eliquis and had IFC filter in place. pt reassessment; pain greatly improved after medications. will d/c home to f/u with PMD and orthopedist. all results discussed in depth with patient and patients son. impression; right leg pain, arthritis, hip tramadol every 6 hours as needed for moderate to severe pain; may cause drowsiness. follow up with the primary care physician within the next 2 days follow up with the orthopedist within the next 2 days return if symptoms worsen, persist or if new symptoms develop. - RAD Interpretation Radiology Orders: 03/11/17 16:05 Femur Right [FEMUR MIN 2 VIEWS RT] [RAD] Stat HIP MIN 2V W/ PELVIS RT [RAD] Stat DUPLEX LOWER EXTRM VEIN BILAT [US] Stat - Medication Orders Current Medication Orders: Discontinued Medications Tramadol HCl (Ultram) 50 mg PO STAT STA Stop: 03/11/17 16:07 Last Admin: 03/11/17 16:17 Dose: 50 mg Disposition/Present on Arrival - Present on Arrival Any Indicators Present on Arrival: Yes History of DVT/PE: Yes History of Uncontrolled Diabetes: No Urinary Catheter: No History of Decub. Ulcer: No History Surgical Site Infection Following: None - Disposition Have Diagnosis and Disposition been Completed?: Yes Diagnosis: Leg pain, Arthritis, hip Disposition: HOME/ ROUTINE Disposition Time: 17:54 Patient Plan: Discharge Condition: GOOD Discharge Instructions (ExitCare): Leg Pain (ED), Arthritis (ED) Additional Instructions: tramadol every 6 hours as needed for moderate to severe pain; may cause drowsiness. follow up with the primary care physician within the next 2 days follow up with the orthopedist within the next 2 days return if symptoms worsen, persist or if new symptoms develop. Prescriptions: traMADol [Ultram] 50 mg PO Q6H PRN #6 tab PRN Reason: moderate to severe pain Referrals: John Godinez MD [Primary Care Provider] - Follow up with primary Gasper Larose DO [Staff Provider] - Follow up with primary
--- NOTE | 2017-03-11 17:10 | RAD ---
Right hip dated 03/11/2017. PROCEDURE: HISTORY: right thigh pain COMPARISON: Correlation made with concurrent radiographs of the right femur. Comparison also made with CT scan abdomen pelvis dated 11/29/2016 which imaged the pelvis and right hip. TECHNIQUE: AP view of the pelvis right hip and AP/frogleg lateral views right hip performed. FINDINGS: No evidence of acute displaced fracture nor dislocation. Both femoral heads are appropriately located within the respective acetabula. Significant degenerative osteoarthritis right hip. . Changes include axial joint space narrowing subchondral sclerosis and cystic changes involving the femoral head an acetabulum. . Less severe degenerative changes left hip. IMPRESSION: Significant DJD right hip. No definitive evidence of acute displaced fracture nor dislocation.
--- NOTE | 2017-03-11 17:12 | RAD ---
PROCEDURE: Right femur HISTORY: right thigh pain COMPARISON: Comparison made with concurrent radiographs of the right hip. TECHNIQUE: AP and lateral views of the right femur performed. FINDINGS: No evidence acute displaced fracture nor dislocation. Right femoral head appropriately located within the right acetabula. Significant degenerative osteoarthritis right hip. . Changes include axial joint space narrowing subchondral sclerosis and cystic changes involving the femoral head an acetabulum. IMPRESSION: No evidence of acute displaced fracture nor dislocation. Significant DJD right hip joint as above.
--- NOTE | 2017-03-12 14:33 | US ---
HISTORY: Leg pain and swelling. Evaluate for DVT PHYSICIAN(S): García Pettit MD. TECHNIQUE: Duplex sonography and color-flow Doppler with graded compression were used to evaluate the deep venous systems of both lower extremities. FINDINGS: There is acute occlusive thrombus throughout the left femoral vein. The left popliteal vein and left common femoral vein are patent and compressible. There is no sonographic evidence for deep venous thrombosis the visualized segments of the right lower extremity. IMPRESSION: Acute, occlusive thrombus throughout the left femoral vein.
== END 2017-03-11 17:59 | disposition home or self-care (01) ==
LOC: ED 15:01
DX: M79.604 Pain in right leg (principal); M16.11 Unilateral primary osteoarthritis, right hip; I10 Essential (primary) hypertension; Z86.718 Personal history of other venous thrombosis and embolism

== ENCOUNTER 2017-05-02 23:53 | Observation (INO) | payer MEDICARE, OTHER ==
[2017-05-02 23:54] VITALS: BMI 23.3
--- NOTE | 2017-05-03 00:46 | ED PDOC ---
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 Denies any shortness of breath. Patient states that symptoms improved after vomiting once in the ambulance en route to the emergency department. She was recently evaluated by PMD who prescribed patient Tramadol for b/l lower extremity pain. Denies any fever, chills, headache, dizziness, trauma, shortness of breath, diarrhea, urinary complaints or any other complaints at this time. Time/Duration: 1-3 hours Symptom Course: Improving Severity Level: Mild Activities at Onset: Light Past Medical History - Provider Review Nursing Documentation Reviewed: Yes - Infectious Disease Hx of Infectious Diseases: None - Tetanus Immunization Tetanus Immunization: Unknown - Reproductive Menopause: Yes - Cardiac Hx Cardiac Disorders: Yes Hx Hypertension: Yes - Pulmonary Hx Respiratory Disorders: No - Neurological Hx Neurological Disorder: No - HEENT Hx HEENT Disorder: No - Renal Hx Renal Disorder: No - Endocrine/Metabolic Hx Endocrine Disorders: No - Hematological/Oncological Hx Blood Disorders: No Other/Comment: blood clot kyle legs - Integumentary Hx Dermatological Disorder: No - Musculoskeletal/Rheumatological Hx Arthritis: Yes (pt denies) - Gastrointestinal Hx Gastrointestinal Disorders: Yes Hx Gastroesophageal Reflux: Yes - Genitourinary/Gynecological Hx Genitourinary Disorders: No - Psychiatric Hx Psychophysiologic Disorder: No Hx Substance Use: No - Anesthesia Hx Anesthesia: No Hx Anesthesia Reactions: No Hx Malignant Hyperthermia: No Family/Social History - Physician Review Nursing Documentation Reviewed: Yes Family/Social History: No Known Family HX Smoking Status: Never Smoked Hx Alcohol Use: No Hx Substance Use: No Allergies/Home Meds Allergies/Adverse Reactions: Allergies No Known Allergies Allergy (Verified 05/03/17 00:11) Home Medications: Home Meds Medication Instructions Recorded Confirmed Cholecalciferol [Vitamin D 1000 IU] 2,000 iu PO DAILY 12/10/16 05/03/17 Atorvastatin Calcium 40 mg PO DAILY 05/03/17 05/03/17 Esomeprazole Magnesium [Nexium] 40 mg PO DAILY 05/03/17 05/03/17 Furosemide [Lasix] 40 mg PO DAILY 05/03/17 05/03/17 traMADol [Ultram] 50 mg PO BID PRN 05/03/17 05/03/17 Review of Systems - Physician Review All systems were reviewed & negative as marked: Yes - Review of Systems Constitutional: Normal. absent: Fatigue, Fevers Respiratory: absent: SOB, Cough, Sputum Cardiovascular: Chest Pain. absent: Palpitations Gastrointestinal: Nausea, Vomiting. absent: Abdominal Pain, Diarrhea Neurological: Normal. absent: Headache, Dizziness Psychiatric: Normal Physical Exam Vital Signs Reviewed: Yes Vital Signs Temp Pulse Resp BP Pulse Ox 05/03/17 05:42 18 05/03/17 05:16 86 17 123/67 98 05/03/17 01:29 97.6 F 75 18 159/77 H 99 Temperature: Afebrile Blood Pressure: Hypertensive Pulse: Regular Respiratory Rate: Normal Appearance: Positive for: Well-Appearing, Non-Toxic, Comfortable Pain Distress: None Mental Status: Positive for: Alert and Oriented X 3 - Systems Exam Head: Present: Atraumatic, Normocephalic Pupils: Present: PERRL Conjunctiva: Present: Normal Mouth: Present: Moist Mucous Membranes Respiratory/Chest: Present: Clear to Auscultation, Good Air Exchange. No: Respiratory Distress, Accessory Muscle Use Cardiovascular: Present: Regular Rate and Rhythm, Normal S1, S2. No: Murmurs Abdomen: Present: Normal Bowel Sounds. No: Tenderness, Distention, Peritoneal Signs Upper Extremity: Present: Normal Inspection. No: Cyanosis, Edema Lower Extremity: Present: Normal Inspection. No: Edema Neurological: Present: GCS=15, CN II-XII Intact, Speech Normal Skin: Present: Warm, Dry, Normal Color. No: Rashes Psychiatric: Present: Alert, Oriented x 3, Normal Insight, Normal Concentration Medical Decision Making ED Course and Treatment: 05/03/17 00:48 Impression: A 81 year old female who presents to the emergency department complaining of chest pain earlier.. Reports that symptoms have improved after vomiting once on the way to emergency room. Plan: -- EKG -- labs, cardiac enzymes -- cxr -- Reassess and disposition Progress Notes: 05/03/17 03:18 EKG interpreted by me: NSR @ 67 bpm. Inferior infarct. Nonspecific ST/T changes. CXR interpreted by me: No active processes. 05/03/17 04:[address] Godinez who is aware and agrees with the plan to observe patient at telemetry for chest pain. Accepts patient under his service. residential sales rep notified. - Lab Interpretations Lab Results: 05/03/17 02:00 05/03/17 02:00 Lab Results 05/03/17 02:00: WBC 7.3, RBC 4.85, Hgb 14.9, Hct 45.4, MCV 93.6, MCH 30.7, MCHC 32.8, RDW 14.2, Plt Count 218, MPV 9.8 05/03/17 02:00: PT 10.6, INR 0.98, APTT 27.8 05/03/17 02:00: Sodium 143, Potassium 3.5 L, Chloride 98, Carbon Dioxide 32, Anion Gap 17, BUN 19, Creatinine 1.0, Est GFR ( Amer) > 60, Est GFR (Non- Af Amer) 53, Random Glucose 169 H, Calcium 9.8, Total Bilirubin 0.7, AST 29, ALT 28, Alkaline Phosphatase 149 H, Lactate Dehydrogenase 485, Total Creatine Kinase 78, Troponin I < 0.01, NT-Pro-B Natriuret Pep 52.8, Total Protein 8.5 H, Albumin 4.7, Globulin 3.9, Albumin/Globulin Ratio 1.2 I have reviewed the lab results: Yes - RAD Interpretation Radiology Orders: 05/03/17 00:40 CHEST PORTABLE [RAD] Stat - Medication Orders Current Medication Orders: Discontinued Medications Apixaban (Eliquis) 5 mg PO BID [facility] PRN Reason: Protocol Last Admin: 05/03/17 10:21 Dose: 5 mg Aspirin (Aspirin Chewable) 81 mg PO DAILY [facility] Last Admin: 05/03/17 10:21 Dose: 81 mg Atorvastatin Calcium (Lipitor) 40 mg PO DAILY [facility] Last Admin: 05/03/17 10:22 Dose: 40 mg Cholecalciferol (Vitamin D) 2,000 iu PO DAILY [facility] Last Admin: 05/03/17 10:21 Dose: 2,000 iu Furosemide (Lasix) 40 mg PO DAILY [facility] Last Admin: 05/03/17 12:14 Dose: 40 mg Sodium Chloride (Sodium Chloride 0.9%) 1,000 mls @ 125 mls/hr IV .Q8H [facility] Last Admin: 05/03/17 05:48 Dose: 125 mls/hr Metoclopramide HCl (Reglan) 5 mg IVP ACHS [facility] Last Admin: 05/03/17 12:49 Dose: 5 mg Ondansetron HCl (Zofran Inj) 4 mg IVP Q4H PRN PRN Reason: Nausea/Vomiting Pantoprazole Sodium (Protonix Ec Tab) 40 mg PO 0600,1600 [facility] Last Admin: 05/03/17 05:48 Dose: 40 mg Potassium Chloride (K-Dur 20 Meq Er Tab) 40 meq PO STAT STA Stop: 05/03/17 05:01 Last Admin: 05/03/17 05:46 Dose: 40 meq Potassium Chloride (Potassium Chloride Oral Soln) 40 meq PO Q1H TAMEKA Stop: 05/03/17 13:31 Last Admin: 05/03/17 14:36 Dose: 40 meq Tramadol HCl (Ultram) 50 mg PO BID PRN PRN Reason: moderate to severe pain - Scribe Statement The provider has reviewed the documentation as recorded by the Eduin Stern Provider Attestation: All medical record entries made by the Eduin were at my direction and personally dictated by me. I have reviewed the chart and agree that the record accurately reflects my personal performance of the history, physical exam, medical decision making, and the department course for this patient. I have also personally directed, reviewed, and agree with the discharge instructions and disposition. Disposition/Present on Arrival - Present on Arrival Any Indicators Present on Arrival: No History of DVT/PE: Yes History of Uncontrolled Diabetes: No Urinary Catheter: No History of Decub. Ulcer: No History Surgical Site Infection Following: None - Disposition Have Diagnosis and Disposition been Completed?: Yes Diagnosis: Chest pain Disposition: HOSPITALIZED Disposition Time: 03:59 Patient Plan: Observation Condition: STABLE
[2017-05-03 02:21] LABS: HEMATOCRIT 45.4 % (36.0-48.0); MEAN CELL VOLUME 93.6 fl (80.0-105.0); MEAN CORPUSCULAR HEMOGLOBIN 30.7 pg (25.0-35.0); MEAN CORPUSCULAR HGB CONC 32.8 g/dl (31.0-37.0); MEAN PLATELET VOLUME 9.8 fl (7.0-11.0); RED CELL DISTRIBUTION WIDTH 14.2 % (11.5-14.5); WHITE BLOOD COUNT 7.3 10^3/ul (4.5-11.0)
[2017-05-03 02:34] LABS: INR 0.98 (0.93-1.08); PARTIAL THROMBOPLASTIN TIME 27.8 Seconds (23.7-30.8)
[2017-05-03 02:42] LABS: ALB/GLOB RATIO 1.2 (1.1-1.8); ALKALINE PHOSPHATASE 149 U/L (38-126); ALT/SGPT 28 U/L (7-56); AST/SGOT 29 U/L (14-36); BILIRUBIN,TOTAL 0.7 mg/dL (0.2-1.3); BLOOD UREA NITROGEN 19 mg/dL (7-21); CALCIUM 9.8 mg/dL (8.4-10.5); CARBON DIOXIDE 32 mmol/L (21-33); CHLORIDE 98 mmol/L (98-107); GFR AFRICAN-AMERICAN > 60; GLUCOSE,RANDOM 169 mg/dL (70-110); POTASSIUM 3.5 mmol/L (3.6-5.0); SODIUM 143 mmol/L (132-148); TOTAL PROTEIN 8.5 g/dL (5.8-8.3)
[2017-05-03 03:04] LABS: TROPONIN I < 0.01 ng/mL
[2017-05-03] MEDS ORDERED: Potassium Chloride 20 mEq ER Tab PO STA (05:00)
--- NOTE | 2017-05-03 05:12 | CP.PCM.HP ---
<LON DAO - Last Filed: 05/03/17 05:29> History of Present Illness - History of Present Illness History of Present Illness: Lon Dao PGY1 H&P Note for Dr. Godinez cc: chest discomfort Mrs. García is a 81yo Female with PMH DVT (on Eliquis), HTN, HLD, and chronic LE pain who p/w chest discomfort that started earlier today. Pt stated that she felt nausea but couldn't vomit. Ambulance was called and pt finally vomited when in the ambulance once (non-bilious, non-bloody). Pt stated that she felt immediate relief after. She stated that she had a heavy dinner last night. Regarding her leg pain, she states that she only gets the LE pain when she walks, but not at rest. Otherwise, the pt denied cp, palpitations, sob , headaches, changes in vision, fevers, chills, urinary changes, abdominal pain or weakness. Pt was not wanting to be admitted stating financial and time reasons, however, was convinced by resident for closer monitoring of electrolytes and heart enzymes/EKG. 10-point ROS reviewed and otherwise unremarkable. PMH: HTN, HLD, DVT (on Eliquis) PSH; none Meds: as per MAR Allergies: None SHx: lives with family, denies tobacco/ETOH/drug use FHx: denied PMD: Dr. Godinez (says she just saw him yesterday) Present on Admission - Present on Admission Any Indicators Present on Admission: No History of DVT/PE: Yes History of Uncontrolled Diabetes: No Review of Systems - Review of Systems All systems: reviewed and no additional remarkable complaints except (as per HPI ) Past Patient History - Infectious Disease Hx of Infectious Diseases: None - Tetanus Immunizations Tetanus Immunization: Unknown - Past Social History Smoking Status: Never Smoked Alcohol: None Drugs: Denies Home Situation {Lives}: With Family - CARDIAC Hx Cardiac Disorders: Yes Hx Hypercholesterolemia: Yes Hx Hypertension: Yes - PULMONARY Hx Respiratory Disorders: No - NEUROLOGICAL Hx Neurological Disorder: No - HEENT Hx HEENT Problems: No - RENAL Hx Chronic Kidney Disease: No - ENDOCRINE/METABOLIC Hx Endocrine Disorders: No - HEMATOLOGICAL/ONCOLOGICAL Hx Blood Disorders: Yes Other/Comment: blood clot klye legs - INTEGUMENTARY Hx Dermatological Problems: No - MUSCULOSKELETAL/RHEUMATOLOGICAL Hx Arthritis: Yes (pt denies) - GASTROINTESTINAL Hx Gastrointestinal Disorders: Yes Hx Gastroesophageal Reflux: Yes - GENITOURINARY/GYNECOLOGICAL Hx Genitourinary Disorders: No - PSYCHIATRIC Hx Psychophysiologic Disorder: No Hx Substance Use: No - SURGICAL HISTORY Hx Surgeries: No (pt denies) - ANESTHESIA Hx Anesthesia: No Hx Anesthesia Reactions: No Hx Malignant Hyperthermia: No Meds Allergies/Adverse Reactions: Allergies Allergy/AdvReac Type Severity Reaction Status Date / Time No Known Allergies Allergy Verified 05/03/17 00:11 Physical Exam - Constitutional Appears: Well, Non-toxic, No Acute Distress - Head Exam Head Exam: ATRAUMATIC, NORMAL INSPECTION, NORMOCEPHALIC - Eye Exam Eye Exam: EOMI, Normal appearance, PERRL Pupil Exam: NORMAL ACCOMODATION - ENT Exam ENT Exam: Mucous Membranes Moist, Normal Exam - Neck Exam Neck exam: Positive for: Normal Inspection. Negative for: Lymphadenopathy, Tenderness, Thyromegaly - Respiratory Exam Respiratory Exam: Clear to Auscultation Bilateral, NORMAL BREATHING PATTERN. absent: Accessory Muscle Use, Rales, Wheezes, Respiratory Distress, Stridor - Cardiovascular Exam Cardiovascular Exam: RRR, +S1, +S2. absent: Gallop, JVD, Rubs, Systolic Murmur - GI/Abdominal Exam GI & Abdominal Exam: Normal Bowel Sounds, Soft. absent: Distended, Guarding, Rebound, Tenderness - Extremities Exam Extremities exam: Positive for: full ROM, pedal edema (1+). Negative for: calf tenderness, tenderness - Back Exam Back exam: NORMAL INSPECTION. absent: CVA tenderness (L), CVA tenderness (R) - Neurological Exam Neurological exam: Alert, Oriented x3 - Psychiatric Exam Psychiatric exam: Normal Affect, Normal Mood - Skin Skin Exam: Normal Color, Warm Results - Vital Signs Recent Vital Signs: Last Vital Signs Temp 97.6 F 05/03/17 01:29 Pulse 75 05/03/17 01:29 Resp 18 05/03/17 01:29 BP 159/77 H 05/03/17 01:29 Pulse Ox 99 05/03/17 01:29 - Labs Result Diagrams: 05/03/17 02:00 05/03/17 02:00 Assessment & Plan - Assessment and Plan (Free Text) Assessment: 81yo AFAM F PMH HTN, HLD and DVT (on Eliquis) who presented with some chest discomfort that was relieved after vomiting en route to hospital Plan: 1. Chest discomfort - EKG done showed inferior infarct (age indetermined) but no acute changes - first Trop I negative - f/u EKG and Trop I q6H - ASA 81, - cont Eliquis home dose - transfer pt to [facility] for obs 2. Hypokalemia - K-Dur 40 stat - f/u CMP 3. Hx DVT - cont home med Eliquis - SCDs while in hospital - monitor for any changes in symptoms or vital signs 4. Hx HTN - Lasix 40mg home dose 5. Hx HLD - cont Lipitor home dose NS 125 HHD PTX/Eliquis Patient evaluated and d/w attending, Dr. Herbert Dao <John Godinez - Last Filed: 05/17/17 22:20> Results - Vital Signs Recent Vital Signs: Last Vital Signs Temp 97.7 F 05/03/17 11:54 Pulse 76 05/03/17 14:00 Resp 18 05/03/17 11:54 BP 130/80 05/03/17 12:14 Pulse Ox 96 05/03/17 06:00 - Labs Result Diagrams: 05/03/17 02:00 05/03/17 08:30 Attending/Attestation - Attestation I have personally seen and examined this patient.: Yes I have fully participated in the care of the patient.: Yes I have reviewed all pertinent clinical information: Yes
[2017-05-03] MEDS ORDERED: Sodium Chloride 0.9% 1,000 ML IV SCH (05:15)
[2017-05-03] MEDS ORDERED: Pantoprazole 40 mg EC Tab PO SCH (06:00)
[2017-05-03 06:49] VITALS: RESP 18
[2017-05-03 06:56] VITALS: O2SAT 96
[2017-05-03 09:16] LABS: ALB/GLOB RATIO 1.1 (1.1-1.8); ALKALINE PHOSPHATASE 129 U/L (38-126); ALT/SGPT 25 U/L (7-56); AST/SGOT 24 U/L (14-36); BILIRUBIN,TOTAL 0.6 mg/dL (0.2-1.3); BLOOD UREA NITROGEN 16 mg/dL (7-21); CALCIUM 9.2 mg/dL (8.4-10.5); CARBON DIOXIDE 30 mmol/L (21-33); CHLORIDE 101 mmol/L (98-107); GFR AFRICAN-AMERICAN > 60; GLUCOSE,RANDOM 74 mg/dL (70-110); POTASSIUM 3.5 mmol/L (3.6-5.0); SODIUM 142 mmol/L (132-148); TOTAL PROTEIN 7.3 g/dL (5.8-8.3)
--- NOTE | 2017-05-03 09:17 | RAD ---
HISTORY: chest pain COMPARISON: 11/28/2016 FINDINGS: LUNGS: No active pulmonary disease. PLEURA: No significant pleural effusion identified, no pneumothorax apparent. CARDIOVASCULAR: Normal. OSSEOUS STRUCTURES: No significant abnormalities. VISUALIZED UPPER ABDOMEN: Normal. OTHER FINDINGS: None. IMPRESSION: No active disease.
[2017-05-03 09:27] LABS: TROPONIN I < 0.01 ng/mL
[2017-05-03 11:54] VITALS: TEMP 97.7
[2017-05-03 12:16] VITALS: BP 130/80
[2017-05-03] MEDS: Potassium Chloride 40 mEq/30 ml LIQ UD PO SCH ×2 (12:49→14:36)
[2017-05-03 16:17] VITALS: PULSE 76
--- NOTE | 2017-05-03 17:06 | HP ---
HISTORY OF PRESENT ILLNESS: The patient is an 81-year-old female who was earlier seen in the office yesterday on 05/02/2017 but earlier this morning or last night, the patient stated that she ate a sandwich and cookies and drank something and after that the patient started having feeling of nausea but was unable to vomit. The patient's family called 911. While the patient was sitting in the ambulance, the patient was started to having episodes of nausea and vomiting and the patient symptoms resolved but the patient was brought to the emergency room by the [facility] for above. According to the ER physician evaluation, the patient complained of some vague chest discomfort earlier in the home associated with symptoms of nausea and chest pain and the symptoms improved after having 1 or 2 episodes of vomiting in the ambulance. REVIEW OF SYSTEMS: A 13 System review was done, pertinent positive and negative dictated above. CODE STATUS: FULL CODE. LIVING WILL/ADVANCE DIRECTIVE: None. ALLERGIES: NONE. HEIGHT: 5 feet 6 inches. BMI: 30.3. WEIGHT: 143. HOME MEDICATIONS: 1. Lasix 40 mg daily. 2. Nexium 40 mg daily. 3. Lipitor 40 mg daily. 4. Protonix 40 mg daily. 5. Vitamin D3 2000 unit daily. 6. Eliquis 5 mg twice a day. 7. Ultram 50 mg twice a day. 8. Voltaren gel to the affected knee. SOCIAL HISTORY: Negative for smoking. Negative for substance abuse. Negative for alcohol. OCCUPATIONAL HISTORY: Disabled female. MENSTRUAL HISTORY: Postmenopausal. 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, history of extensive left iliofemoral DVT, history of degenerative joint disease, history of gait dysfunction, history of left ventricular ejection fraction of 59%, history of concentric left ventricular hypertrophy, history of moderately sclerotic aortic valve, history of moderate mitral annular calcification, history of syncope, history of normocytic iron deficiency anemia, history of questionable urinary tract infection, history of DVT, history of atelectasis, history of emphysema, history of left common femoral vein, left popliteal vein, left proximal profunda femoral vein extensive occlusive thrombosis undefined superior and left, history of cerebral cortical atrophy of the brain, history of degenerative joint disease of the knees, history of renal cyst, history of small vessel ischemic disease. PHYSICAL EXAMINATION GENERAL: The patient is seen in room 266, bed 2. The patient is seen lying in the bed with the patient's family at bedside. VITAL SIGNS: Since admission was noted. T-max is 97.8, heart rate 77, telemetry shows sinus rhythm. Blood pressure 130/80, 138/79, 123/67. Respiration is 18, O2 saturation is 96-99%. HEENT: Normocephalic and atraumatic. Pinkish conjunctiva. Anicteric sclera. No oropharyngeal lesion. NECK: No neck rigidity. Soft carotid bruits. CHEST: Kyphosis. LUNG: No rales, crackles, or wheezing. CARDIOVASCULAR: S1 and S2. Regular rhythm. Questionable soft systolic murmur right second intercostal space, left systolic murmur left second intercostal space. ABDOMEN: Soft. Positive bowel sounds. GENITALIA: Female. RECTAL: Deferred. EXTREMITIES: Shows chronic swelling of the lower extremity. No calf tenderness. No Lanie's sign. MUSCULOSKELETAL: Shows a body mass index of 23. NEUROLOGIC: Cranial nerve II through XII limited. GAIT: Could not be tested. LABORATORY DATA: WBC 7.3, hemoglobin and hematocrit 13.9 and 45.4, platelet 218. PT/PTT is normal. D-Dimer 0.50. Chemistries significant for potassium of 3.5. Troponin 2 sets are negative. LFTs are normal. Chest x-ray is no active disease. EKG was reviewed shows sinus rhythm. Normal EKG. The patient was seen in the emergency room by the ER physician. The patient was placed on telemetry observation for chest pain. IMPRESSION AND PLAN: 1. Chest pain, etiology undetermined. 2. Questionable gastroesophageal reflux with symptoms of nausea and vomiting. 3. Hypokalemia. 4. Hypertension. 5. 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 6. Deconditioning. 7. Gait dysfunction. PLAN: At this time the patient's cardiac enzymes are all negative. D-Dimer is negative. EKG is normal. The patient will be considered for discharge if the patient is cleared by cardiology. The patient has been resumed on her home medication. The patient has been given potassium supplementation for hypokalemia. After the patient is cleared for discharge, the patient will be discharge home on Eliquis 5 mg twice a day, Lipitor 40 mg daily, vitamin D3 2000 IU daily, Nexium 40 mg daily, Lasix 40 mg daily, Protonix 40 mg daily, Ultram 50 mg twice a day p.r.n. The patient will be considered for discharge after cleared by cardiology. The patient will be discharge follow up with Dr. Godinez within one week. The patient has been explained about the details of her medical condition and the patient has been advised to continue home medications and follow up with Dr. Godinez within one week. Dictated and electronically signed, not read. John Godinez MD
--- NOTE | 2017-05-03 17:46 | CARD ---
APPROVED REPORT EKG Measurement Heart [id number] <Conclusion> Normal sinus rhythm Normal ECG
--- NOTE | 2017-05-03 17:51 | CARD ---
APPROVED REPORT EKG Measurement Heart [id number] <Conclusion> Normal sinus rhythm Minimal voltage criteria for LVH, may be normal variant Inferior infarct, age undetermined Abnormal ECG
--- NOTE | 2017-05-04 01:45 | CON ---
DATE: 05/03/2017 HISTORY OF PRESENT ILLNESS: The patient is an 81-year-old woman who after eating a snack developed two episodes of nausea and vomiting. She was brought to the emergency room where she was admitted for questionable chest pain. The patient currently has resolved her nausea. She ate breakfast and lunch without issues. The patient's past medical history is notable for DVTs and currently being treated on Eliquis. In addition, the patient has a history of hypercholesterolemia, anemia, and history of seizures. SOCIAL HISTORY: There is a question of smoking. REVIEW OF SYSTEMS: A 14-point review of systems was reviewed in detail. No cardiac symptomatology is noted. PHYSICAL EXAMINATION: VITAL SIGNS: Blood pressure 130/70, heart rates in the 70s. NECK: Negative JVD. LUNGS: Without rales. HEART: S1, S2. EXTREMITIES: Without edema. EKG shows no acute changes. LABORATORY DATA: The troponins are negative x2. The hemoglobin is 14.9. IMPRESSION: 1. Atypical chest pain, most likely from her nausea and vomiting which is now resolved. 2. Nausea and vomiting, which is now resolved. 3. Hypercholesterolemia. 4. History of deep venous thrombosis. 5. Questionable history of smoking. Given these findings, we will discontinue telemetry today. Given her cardiac risk factors, the patient may benefit from further cardiac evaluation, which can all be done as an outpatient. García Shin MD
== END 2017-05-03 17:01 | disposition home or self-care (01) ==
LOC: ED 23:53 → ERH 05-03 04:00 → 2RNO 05-03 05:35
PROVIDERS: ADMIT Internal Medicine; ATTEND Internal Medicine
DX: R07.89 Other chest pain (principal); R11.2 Nausea with vomiting, unspecified; E78.00 Pure hypercholesterolemia, unspecified; D68.62 Lupus anticoagulant syndrome; E78.5 Hyperlipidemia, unspecified; E87.6 Hypokalemia; I10 Essential (primary) hypertension; Z86.718 Personal history of other venous thrombosis and embolism; I87.8 Other specified disorders of veins; K21.9 Gastro-esophageal reflux disease without esophagitis; Z79.01 Long term (current) use of anticoagulants; Z79.899 Other long term (current) drug therapy; R26.9 Unspecified abnormalities of gait and mobility
CPT/HCPCS: 71010; 80053; 82550; 83615; 83735; 83880; 84484; 85027; 85378; 85610; 85730; 93005; 99285; G0378; J2765; J3480; J7040

== ENCOUNTER 2017-11-08 20:29 | Emergency (ER) | payer MEDICARE ==
[2017-11-08 20:35] VITALS: BMI 29.2
[2017-11-08 20:55] VITALS: RESP 18; TEMP 97.8
--- NOTE | 2017-11-08 21:19 | ED PDOC ---
Arrival/HPI - General Chief Complaint: Eye Problem Time Seen by Provider: 11/08/17 20:41 Historian: Patient - History of Present Illness Narrative History of Present Illness (Text): 11/08/17 21:11 A 82 year old female, whose past medical history includes hypertension, presents to the emergency department complaining of right eye pain and swelling since earlier today. Patient reports she had a procedure done today on her right eye by an opthamologist at [facility] in [place]. Patient is unsure what kind of procedure it was or the name of the physician who performed it. Patient denies any fever, chills or any other complaints. Family unable to provide any further information. Time/Duration: Other (earlier today) Symptom Course: Unchanged Quality: Other Context: Home Past Medical History - Provider Review Nursing Documentation Reviewed: Yes - Infectious Disease Hx of Infectious Diseases: None - Tetanus Immunization Tetanus Immunization: Unknown - Cardiac Hx Cardiac Disorders: Yes Hx Hypertension: Yes - Pulmonary Hx Respiratory Disorders: No - Neurological Hx Neurological Disorder: No - HEENT Hx HEENT Disorder: No - Renal Hx Renal Disorder: No - Endocrine/Metabolic Hx Endocrine Disorders: No - Hematological/Oncological Hx Blood Disorders: No Other/Comment: blood clot kyle legs - Integumentary Hx Dermatological Disorder: No - Musculoskeletal/Rheumatological Hx Arthritis: Yes (pt denies) - Gastrointestinal Hx Gastrointestinal Disorders: Yes Hx Gastroesophageal Reflux: Yes - Genitourinary/Gynecological Hx Genitourinary Disorders: No - Psychiatric Hx Psychophysiologic Disorder: No Hx Substance Use: No - Anesthesia Hx Anesthesia: No Hx Anesthesia Reactions: No Hx Malignant Hyperthermia: No Family/Social History - Physician Review Nursing Documentation Reviewed: Yes Family/Social History: No Known Family HX Smoking Status: Never Smoked Hx Alcohol Use: No Hx Substance Use: No Allergies/Home Meds Allergies/Adverse Reactions: Allergies No Known Allergies Allergy (Verified 05/03/17 00:11) Home Medications: Home Meds Medication Instructions Recorded Confirmed Cholecalciferol [Vitamin D 1000 IU] 2,000 iu PO DAILY 12/10/16 11/08/17 Atorvastatin Calcium 40 mg PO DAILY 05/03/17 11/08/17 Esomeprazole Magnesium [Nexium] 40 mg PO DAILY 05/03/17 11/08/17 Furosemide [Lasix] 40 mg PO DAILY 05/03/17 11/08/17 traMADol [Ultram] 50 mg PO BID PRN 05/03/17 11/08/17 Review of Systems - Physician Review All systems were reviewed & negative as marked: Yes - Review of Systems Constitutional: absent: Fevers, Night Sweats Eyes: Eye Pain (right sided) Physical Exam Vital Signs Reviewed: Yes Vital Signs Temp Pulse Resp BP Pulse Ox 11/08/17 22:27 80 18 148/76 99 11/08/17 20:52 97.8 F 78 18 189/95 H 94 L Temperature: Afebrile Blood Pressure: Hypertensive Pulse: Regular Respiratory Rate: Normal Appearance: Positive for: Well-Appearing, Non-Toxic, Comfortable Pain Distress: None Mental Status: Positive for: Alert and Oriented X 3 - Systems Exam Skin: No: Rashes Medical Decision Making ED Course and Treatment: 11/08/17 21:11 Impression: A 82 year old female with right eye pain after eye procedure performed earlier today Plan: -- Reassess and disposition Progress Notes: Left a massage with [employer] in [place] at , no response. Will repeat vitals, if normal, patient should follow up with them tomorrow. 11/08/17 22:39 Patient's blood pressure has improve. Patient feels better after taking Tylenol. Still no call back from [facility]. Patient will follow up with [facility]. - Medication Orders Current Medication Orders: Discontinued Medications Acetaminophen (Tylenol 325mg Tab) 650 mg PO STAT STA Stop: 11/08/17 21:25 Last Admin: 11/08/17 21:37 Dose: 650 mg MAR Pain/Vitals Document 11/08/17 21:37 SS (Rec: 11/08/17 21:37 SS [facility] [place] [facility] [id number] Pain Reassessment Is This A Pain ReAssessment? No Sleep Is patient sleeping during reassessment? No Presence of Pain Presence of Pain Yes Location Pain Location Body Site Eye Disposition/Present on Arrival - Present on Arrival History of DVT/PE: Yes History of Uncontrolled Diabetes: No Urinary Catheter: No History of Decub. Ulcer: No History Surgical Site Infection Following: None - Disposition Diagnosis: Eye pain Disposition: HOME/ ROUTINE Patient Problems: Current Active Problems Problem Status Onset Eye pain Acute Condition: IMPROVED Discharge Instructions (ExitCare): How to Care for Your Eyes Additional Instructions: follow up with your eye doctor TOMORROW for further evaluation return to the ED with any worsening or concerning symptoms Referrals: [facility] Brii Req, [Primary Care Provider] - Follow up with primary Forms: [employer] ([place])
[2017-11-08 22:28] VITALS: BP 148/76; PULSE 80; O2SAT 99
== END 2017-11-08 22:54 | disposition home or self-care (01) ==
LOC: ED 20:29
DX: H57.11 Ocular pain, right eye (principal)

== ENCOUNTER 2018-03-01 12:17 | Emergency (ER) | payer MEDICARE ==
[2018-03-01 12:17] VITALS: BMI 29.2
[2018-03-01 13:39] VITALS: RESP 18
--- NOTE | 2018-03-01 15:18 | ED PDOC ---
Arrival/HPI - General Chief Complaint: Lower Extremity Problem/Injury Time Seen by Provider: 03/01/18 14:15 Historian: Patient - History of Present Illness Narrative History of Present Illness (Text): 03/01/18 15:15 82-year-old female presents today with chronic right thigh pain. Patient denies any recent trauma or injury. Patient states she has been having pain in the right thigh for "a while now". Patient states she was seen in the emergency room in June for the same pain. Patient states the pain has not gone away. Patient states she has on L a class for previous DVT. No medications have been taken for pain at home. Patient denies numbness weakness or tingling in the extremity. Patient states the pain is severe and located to the anterior thigh worse with range of motion of the hip and knee. Patient denies chest pain or shortness of breath. Denies fevers or chills. No other complaints. Symptom Onset: Gradual Symptom Course: Unchanged Quality: Aching Severity Level: Moderate Past Medical History - Provider Review Nursing Documentation Reviewed: Yes - Travel History Have you recently traveled outside [place] w/in the past 3 mons?: No - Infectious Disease Hx of Infectious Diseases: None - Tetanus Immunization Tetanus Immunization: Unknown - Reproductive Menopause: Yes - Cardiac Hx Cardiac Disorders: Yes Hx Hypertension: Yes - Pulmonary Hx Respiratory Disorders: No - Neurological Hx Neurological Disorder: No - HEENT Hx HEENT Disorder: No - Renal Hx Renal Disorder: No - Endocrine/Metabolic Hx Endocrine Disorders: No - Hematological/Oncological Hx Blood Disorders: No Other/Comment: blood clot kyle legs - Integumentary Hx Dermatological Disorder: No - Musculoskeletal/Rheumatological Hx Arthritis: Yes (pt denies) - Gastrointestinal Hx Gastrointestinal Disorders: Yes Hx Gastroesophageal Reflux: Yes - Genitourinary/Gynecological Hx Genitourinary Disorders: No - Psychiatric Hx Psychophysiologic Disorder: No Hx Substance Use: No - Anesthesia Hx Anesthesia: No Hx Anesthesia Reactions: No Hx Malignant Hyperthermia: No Family/Social History - Physician Review Nursing Documentation Reviewed: Yes Family/Social History: Unknown Family HX Smoking Status: Never Smoked Hx Alcohol Use: No Hx Substance Use: No Allergies/Home Meds Allergies/Adverse Reactions: Allergies No Known Allergies Allergy (Verified 05/03/17 00:11) Home Medications: Home Meds Medication Instructions Recorded Confirmed Cholecalciferol [Vitamin D 1000 IU] 2,000 iu PO DAILY 12/10/16 11/08/17 Atorvastatin Calcium 40 mg PO DAILY 05/03/17 11/08/17 Esomeprazole Magnesium [Nexium] 40 mg PO DAILY 05/03/17 11/08/17 Furosemide [Lasix] 40 mg PO DAILY 05/03/17 11/08/17 traMADol [Ultram] 50 mg PO BID PRN 05/03/17 11/08/17 Review of Systems - Review of Systems Constitutional: absent: Fatigue, Fevers Respiratory: absent: SOB, Cough Cardiovascular: absent: Chest Pain, Palpitations Gastrointestinal: absent: Abdominal Pain, Nausea, Vomiting Musculoskeletal: Arthralgias. absent: Back Pain, Neck Pain Skin: absent: Rash, Pruritis Neurological: absent: Headache, Dizziness Psychiatric: absent: Anxiety, Depression Physical Exam Vital Signs Reviewed: Yes Vital Signs Temp Pulse Resp BP Pulse Ox 03/01/18 13:36 99.6 F 58 L 18 170/75 H 98 Temperature: Afebrile Blood Pressure: Hypertensive Pulse: Regular Respiratory Rate: Normal Appearance: Positive for: Well-Appearing, Non-Toxic, Comfortable Pain Distress: None Mental Status: Positive for: Alert and Oriented X 3 - Systems Exam Head: Present: Atraumatic Mouth: Present: Moist Mucous Membranes Respiratory/Chest: Present: Clear to Auscultation Cardiovascular: Present: Regular Rate and Rhythm Abdomen: No: Tenderness, Distention, Rebound, Guarding Back: Present: Normal Inspection Upper Extremity: Present: Normal Inspection Lower Extremity: Present: Normal Inspection, Edema (minimal lower leg edema bilaterally. ), NORMAL PULSES, Tenderness (right thigh; + ttp over anterior thigh; no edema, no erythema; limited rom of hip and knee with pain. sensation and distal pulses intact. cap refill <2. ), Neurovascularly Intact, Capillary Refill < 2 s. No: CALF TENDERNESS, Normal ROM, Deformity, Temperature Abnormalties Neurological: Present: GCS=15 Skin: Present: Warm, Dry, Normal Color. No: Rashes Psychiatric: Present: Alert, Oriented x 3 Medical Decision Making ED Course and Treatment: 03/01/18 15:21 Patient is nontoxic well-appearing in no distress with stable vital signs Venous duplex of the right lower leg; no dvt tramadol given for pain xray; right hip: no fracture xray right femur: no fracture xray right knee; arthritis, no fracture Patient reassessment; patient is nontoxic well-appearing in no distress with stable vital signs Patient feeling better after medications I discussed the results with patient about followup with a primary care physician within the next 2 days as well as the orthopedist. I've advised return if symptoms worsen persist or if there's concerning symptoms develop. Patient verbalizes understanding of discharge instructions and need for immediate followup. all aspects of this case were discussed the attending of record. Impression: Leg pain, arthritis, knee Tramadol 1 tablet every 8 hours as needed for moderate to severe pain call and may cause drowsiness Use cane for ambulation Rest, ice, elevation Followup primary care physician within the next 2 days Follow up with the orthopedist within the next 2 days Return if symptoms worsen persist or if new symptoms develop Reassessment Condition: Re-examined, Improved - Lab Interpretations Lab Results: 03/01/18 15:05 03/01/18 15:05 Lab Results 03/01/18 15:05: WBC 5.6 D, RBC 4.15, Hgb 12.8 D, Hct 38.5, MCV 92.8, MCH 30.8 , MCHC 33.2, RDW 14.1, Plt Count 210, MPV 9.6, Gran % 32.8 L, Lymph % (Auto) 58.5 H, Navarro % (Auto) 7.1 H, Eos % (Auto) 1.4 L, Baso % (Auto) 0.2, Gran # 1.84 , Lymph # (Auto) 3.3, Navarro # (Auto) 0.4, Eos # (Auto) 0.1, Baso # (Auto) 0.01 03/01/18 15:05: Sodium 148, Potassium 3.5 L, Chloride 108 H, Carbon Dioxide 30, Anion Gap 13, BUN 6 L, Creatinine 0.9, Est GFR ( Amer) > 60, Est GFR (Non -Af Amer) 60, Random Glucose 85, Calcium 9.1, Total Bilirubin 0.6, AST 25, ALT 14, Alkaline Phosphatase 122, NT-Pro-B Natriuret Pep 275, Total Protein 7.3, Albumin 3.9, Globulin 3.4, Albumin/Globulin Ratio 1.2 03/01/18 15:05: PT 10.6, INR 0.93, APTT 29.0 - RAD Interpretation Radiology Orders: 03/01/18 14:32 Hip Right [HIP MIN 2V W/ PELVIS RT] [RAD] Stat 03/01/18 14:33 FEMUR MIN 2 VIEWS RT [RAD] Stat KNEE RIGHT 2 VIEWS (AP & LAT) [RAD] Stat 03/01/18 14:35 DUPLEX LOWER EXTRM VEIN RIGHT [US] Stat - Medication Orders Current Medication Orders: Discontinued Medications Tramadol HCl (Ultram) 50 mg PO STAT STA Stop: 03/01/18 14:34 Last Admin: 03/01/18 15:14 Dose: 50 mg MAR Pain Assessment Document 03/01/18 15:14 HI (Rec: 03/01/18 15:15 [place] [facility] [place] [place] Pain Reassessment Is this a pain reassessment? No Sleep Is patient sleeping during reassessment? No Disposition/Present on Arrival - Present on Arrival Any Indicators Present on Arrival: Yes History of DVT/PE: Yes History of Uncontrolled Diabetes: No Urinary Catheter: No History of Decub. Ulcer: No History Surgical Site Infection Following: None - Disposition Have Diagnosis and Disposition been Completed?: Yes Diagnosis: Arthritis of knee, Knee pain, Leg pain Disposition: HOME/ ROUTINE Disposition Time: 17:48 Patient Plan: Discharge Condition: GOOD Discharge Instructions (ExitCare): Osteoarthritis, Knee Pain (DC), Muscle and Bone Pain (DC) Additional Instructions: Tramadol 1 tablet every 8 hours as needed for moderate to severe pain: May cause drowsiness Use cane for ambulation Rest, ice, elevation Followup primary care physician within the next 2 days Follow up with the orthopedist within the next 2 days Return if symptoms worsen persist or if new symptoms develop Prescriptions: traMADol [Ultram] 50 mg PO Q6H PRN #6 tab PRN Reason: moderate to severe pain Referrals: John Godinez MD [Primary Care Provider] - Follow up with primary Wei Spence III, MD [Medical Doctor] - Follow up with primary Forms: [employer] ([place])
[2018-03-01 15:29] LABS: BASO # 0.01 K/mm3 (0.0-2.0); BASO % 0.2 % (0.0-3.0); EOS # 0.1 (0.0-0.7); EOS % 1.4 % (1.5-5.0); GRAN # 1.84 (1.4-6.5); GRAN % 32.8 % (50.0-68.0); HEMOGLOBIN 12.8 g/dL (12.0-16.0); LYMPH # 3.3 (1.2-3.4); LYMPH % 58.5 % (22.0-35.0); MEAN CELL VOLUME 92.8 fl (80.0-105.0); MEAN CORPUSCULAR HEMOGLOBIN 30.8 pg (25.0-35.0); MEAN CORPUSCULAR HGB CONC 33.2 g/dl (31.0-37.0); MEAN PLATELET VOLUME 9.6 fl (7.0-11.0); MONO # 0.4 (0.1-0.6); MONO % 7.1 % (1.0-6.0); RBC 4.15 10^6/uL (3.5-6.1); RED CELL DISTRIBUTION WIDTH 14.1 % (11.5-14.5); WHITE BLOOD COUNT 5.6 10^3/ul (4.5-11.0)
[2018-03-01 15:39] LABS: ALB/GLOB RATIO 1.2 (1.1-1.8); ALBUMIN 3.9 g/dL (3.0-4.8); ALT/SGPT 14 U/L (7-56); AST/SGOT 25 U/L (14-36); BLOOD UREA NITROGEN 6 mg/dL (7-21); CALCIUM 9.1 mg/dL (8.4-10.5); GFR AFRICAN-AMERICAN > 60; GFR NON-AFRICAN AMERICAN 60
[2018-03-01 15:47] LABS: B-TYPE NATRIURETIC PEPTIDE 275 pg/mL (0-450)
[2018-03-01 15:48] LABS: INR 0.93 (0.93-1.08); PROTHROMBIN TIME 10.6 SECONDS (9.4-12.5)
--- NOTE | 2018-03-01 16:08 | US ---
PROCEDURE: Right lower extremity venous US HISTORY: Leg pain and swelling. Evaluate for DVT. PHYSICIAN(S): García Pettit M.D. TECHNIQUE: Duplex sonography and color-flow Doppler with graded compression were used to evaluate the deep venous system of the right lower extremity. FINDINGS: The visualized deep venous system of the right lower extremity is sonographically normal and compressible. Normal waveforms and augmentation are seen. There is no sonographic evidence for deep venous thrombosis in the visualized segments of the right lower extremity. IMPRESSION: 1. No sonographic evidence for deep venous thrombosis in the visualized segments of the right lower extremity.
--- NOTE | 2018-03-01 16:53 | RAD ---
PROCEDURE: Right Knee Radiographs. HISTORY: Pain COMPARISON: None. FINDINGS: BONES: There is diffuse bone demineralization. There is no acute displaced fracture or bone destruction. JOINTS: There is moderate tricompartmental degenerative osteoarthrosis with reduced joint spaces, marginal osteophytes and tibial spiking, worse in the media compartment. JOINT EFFUSION: None. OTHER FINDINGS: None. IMPRESSION: No acute fracture or dislocation. Moderate tricompartmental degenerative osteoarthrosis, worse in the medial compartment.
--- NOTE | 2018-03-01 16:54 | RAD ---
PROCEDURE: Right Hip Radiographs. HISTORY: Pain COMPARISON: None. FINDINGS: BONES: The pelvic ring is intact. There is no acute displaced fracture or bone destruction. There is diffuse bone demineralization. JOINTS: There is severe degenerative osteoarthrosis in the right hip joint with near complete loss of joint space, subarticular sclerosis and cystic changes and marginal osteophytes. There is mild degenerative osteoarthrosis in the left hip joint. SOFT TISSUES: Normal. OTHER FINDINGS: None. IMPRESSION: Severe degenerative osteoarthrosis in the right hip joint. No acute fracture or dislocation. Please note occult fractures cannot be excluded on plain radiographs. If there is a persistent clinical concern, an MRI of the hip may be performed for further evaluation.
--- NOTE | 2018-03-01 16:55 | RAD ---
PROCEDURE: Right Femur Radiographs. HISTORY: Pain COMPARISON: None. TECHNIQUE: AP and Lateral Radiographs of the right femur. FINDINGS: FEMUR: There is diffuse bone demineralization. No acute displaced fracture or bone destruction. SOFT TISSUES: Normal. OTHER FINDINGS: None. IMPRESSION: No acute displaced fracture.
[2018-03-01 19:47] VITALS: BP 162/69; PULSE 60; TEMP 99; O2SAT 99
== END 2018-03-01 18:00 | disposition home or self-care (01) ==
LOC: ED 12:17
DX: M79.651 Pain in right thigh (principal); M25.561 Pain in right knee; M17.11 Unilateral primary osteoarthritis, right knee

== ENCOUNTER 2018-03-08 15:21 | Emergency (ER) | payer MEDICARE ==
[2018-03-08 16:24] VITALS: PULSE 68; RESP 18
--- NOTE | 2018-03-08 16:51 | ED PDOC ---
Arrival/HPI - General Chief Complaint: Trauma Time Seen by Provider: 03/08/18 15:59 Historian: Patient - History of Present Illness Narrative History of Present Illness (Text): 03/08/18 16:43 82yo female with pmhx of hypertension, DVT, hyperlipdemia who present with right wrist pain s/p trauma. She reports mechanical fall. States she tripped and fall earlier today. She describes pain as "stinging". States she came for evaluation of her wrist. She otherwise denies hitting her head on the floor. Denies focal weakness, paresthesia, LOC, nausea, vomiting, visual changes, any other complaint. Patient is however on anticoagulant. Past Medical History - Provider Review Nursing Documentation Reviewed: Yes - Infectious Disease Hx of Infectious Diseases: None - Tetanus Immunization Tetanus Immunization: Unknown - Cardiac Hx Cardiac Disorders: Yes Hx Hypertension: Yes - Pulmonary Hx Respiratory Disorders: No - Neurological Hx Neurological Disorder: No - HEENT Hx HEENT Disorder: No - Renal Hx Renal Disorder: No - Endocrine/Metabolic Hx Endocrine Disorders: No - Hematological/Oncological Hx Blood Disorders: No Other/Comment: blood clot kyle legs - Integumentary Hx Dermatological Disorder: No - Musculoskeletal/Rheumatological Hx Arthritis: Yes (pt denies) - Gastrointestinal Hx Gastrointestinal Disorders: Yes Hx Gastroesophageal Reflux: Yes - Genitourinary/Gynecological Hx Genitourinary Disorders: No - Psychiatric Hx Psychophysiologic Disorder: No Hx Substance Use: No - Anesthesia Hx Anesthesia: No Hx Anesthesia Reactions: No Hx Malignant Hyperthermia: No Family/Social History - Physician Review Nursing Documentation Reviewed: Yes Family/Social History: Unknown Family HX Smoking Status: Never Smoked Hx Alcohol Use: No Hx Substance Use: No Allergies/Home Meds Allergies/Adverse Reactions: Allergies No Known Allergies Allergy (Verified 03/08/18 16:20) Home Medications: Home Meds Medication Instructions Recorded Confirmed Cholecalciferol [Vitamin D 1000 IU] 2,000 iu PO DAILY 12/10/16 11/08/17 Atorvastatin Calcium 40 mg PO DAILY 05/03/17 11/08/17 Esomeprazole Magnesium [Nexium] 40 mg PO DAILY 05/03/17 11/08/17 Furosemide [Lasix] 40 mg PO DAILY 05/03/17 11/08/17 traMADol [Ultram] 50 mg PO BID PRN 05/03/17 11/08/17 Review of Systems - Physician Review All systems were reviewed & negative as marked: Yes - Review of Systems Constitutional: Normal Eyes: Normal ENT: Normal Respiratory: Normal Cardiovascular: Normal Gastrointestinal: Normal Genitourinary Female: Normal Musculoskeletal: Arthralgias (right wrist) Skin: Normal Neurological: Normal Endocrine: Normal Hemo/Lymphatic: Normal Psychiatric: Normal Physical Exam Vital Signs Reviewed: Yes Vital Signs Temp Pulse Resp BP Pulse Ox 03/08/18 18:10 97.8 F 68 18 138/82 95 03/08/18 18:05 97.8 F 68 18 138/82 96 03/08/18 16:21 97.7 F 68 18 143/79 95 Temperature: Afebrile Blood Pressure: Normal Pulse: Regular Respiratory Rate: Normal Appearance: Positive for: Well-Appearing, Non-Toxic, Comfortable Pain Distress: None Mental Status: Positive for: Alert and Oriented X 3 - Systems Exam Head: Present: Atraumatic, Normocephalic Pupils: Present: PERRL Extroacular Muscles: Present: EOMI Conjunctiva: Present: Normal Mouth: Present: Moist Mucous Membranes Neck: Present: Normal Range of Motion Respiratory/Chest: Present: Clear to Auscultation, Good Air Exchange. No: Respiratory Distress, Accessory Muscle Use Cardiovascular: Present: Regular Rate and Rhythm, Normal S1, S2. No: Murmurs Abdomen: No: Tenderness, Distention, Peritoneal Signs Back: Present: Normal Inspection Upper Extremity: Present: Normal ROM, NORMAL PULSES, Tenderness (Mild tenderness over right wrist), Neurovascularly Intact. No: Cyanosis, Edema, Swelling, Temperature Abnormalties, Deformity Lower Extremity: Present: Normal Inspection. No: Edema Neurological: Present: GCS=15, CN II-XII Intact, Speech Normal Skin: Present: Warm, Dry, Normal Color. No: Rashes Psychiatric: Present: Alert, Oriented x 3, Normal Insight, Normal Concentration Medical Decision Making ED Course and Treatment: 03/09/18 00:52 PT presented for right wrist pain. she was ambulatory with a cane in ED, which is her baseline. she was neurologically intact. Pt is on anticoagulant and head CT was ordered to r/o any internal derangement. Her pain was controlled with medication in ED. Head CT - No acute finding Right wrist xray IMPRESSION: Dorsal soft tissue swelling. No demonstrated fracture or dislocation. Degenerative change. Result was DW the pt. Wrist volar brace placed. Pt advised to ice wrist and elevate. Tramadol rx given. Referred to her PMD. - RAD Interpretation Radiology Orders: 03/08/18 16:16 HEAD W/O CONTRAST [CT] Stat 03/08/18 16:52 WRIST, RIGHT 3 VIEWS [RAD] Stat - Medication Orders Current Medication Orders: Discontinued Medications Tramadol HCl (Ultram) 50 mg PO STAT STA Stop: 03/08/18 16:18 Last Admin: 03/08/18 17:00 Dose: 50 mg MAR Pain Assessment Document 03/08/18 17:00 HI (Rec: 03/08/18 17:00 HI [facility] [place]) Pain Reassessment Is this a pain reassessment? No Sleep Is patient sleeping during reassessment? No Presence of Pain Presence of Pain Yes Location Left, Right or Bilateral Right Pain Location Body Site Wrist Disposition/Present on Arrival - Present on Arrival Any Indicators Present on Arrival: No History of DVT/PE: Yes History of Uncontrolled Diabetes: No Urinary Catheter: No History of Decub. Ulcer: No History Surgical Site Infection Following: None - Disposition Have Diagnosis and Disposition been Completed?: Yes Diagnosis: Wrist sprain Disposition: HOME/ ROUTINE Disposition Time: 17:25 Patient Plan: Discharge Condition: STABLE Discharge Instructions (ExitCare): Wrist Sprain (DC) Additional Instructions: Follow up with your Doctor apply ice to wrist and elevate Return to ED for any new or worsening symptoms Prescriptions: traMADol [Ultram] 50 mg PO BID #8 tab Referrals: John Godinez MD [Primary Care Provider] - Follow up with primary Forms: [employer] ([place])
--- NOTE | 2018-03-08 17:02 | CT ---
Date of service: 03/08/2018 PROCEDURE: CT HEAD WITHOUT CONTRAST. HISTORY: Status post fall COMPARISON: Comparison made with CT scan of the brain 11/28/2016 TECHNIQUE: Axial computed tomography images were obtained through the head/brain without intravenous contrast. Radiation dose: Total exam DLP = 852.02 mGy-cm. This CT exam was performed using one or more of the following dose reduction techniques: Automated exposure control, adjustment of the mA and/or kV according to patient size, and/or use of iterative reconstruction technique. FINDINGS: HEMORRHAGE: No acute parenchymal, subarachnoid or extra-axial hemorrhage. BRAIN: Minor chronic periventricular white matter ischemic changes again seen. Moderate generalized volume loss. Mild vascular calcifications. VENTRICLES: Unremarkable. No hydrocephalus. CALVARIUM: Calvarium intact. PARANASAL SINUSES: Unremarkable as visualized. No significant inflammatory changes. MASTOID AIR CELLS: Unremarkable as visualized. No inflammatory changes. OTHER FINDINGS: Changes of bilateral cataract again noted IMPRESSION: No acute intracranial hemorrhage. Mild chronic periventricular white matter ischemic changes. Moderate generalized volume loss.
--- NOTE | 2018-03-08 17:18 | RAD ---
Date of service: 03/08/2018 PROCEDURE: Right Wrist Radiographs. HISTORY: wrist pain s/p trauma COMPARISON: None. FINDINGS: BONES: No acute fracture. JOINTS: Diffuse joint space narrowing. SOFT TISSUES: Dorsal soft tissue swelling. OTHER FINDINGS: None. IMPRESSION: Dorsal soft tissue swelling. No demonstrated fracture or dislocation. Degenerative change.
[2018-03-08 18:10] VITALS: BP 138/82; TEMP 97.8
[2018-03-08 18:11] VITALS: O2SAT 95
== END 2018-03-08 18:10 | disposition home or self-care (01) ==
LOC: ED 15:21
DX: S63.501A Unspecified sprain of right wrist, initial encounter (principal); W01.0XXA Fall on same level from slipping, tripping and stumbling without subsequent striking against object, initial encounter; Y92.9 Unspecified place or not applicable; I10 Essential (primary) hypertension

== ENCOUNTER 2018-06-26 18:27 | Emergency (ER) | payer MEDICARE ==
[2018-06-26 19:01] VITALS: TEMP 98.7
--- NOTE | 2018-06-26 19:31 | ED PDOC ---
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 Patient states chronic pain unchanged since onset but denies following up with a specialist or having a MRI performed. Patient denies any recent trauma or injury to the knee. Patient denies any other associated somatic complaints. Patient denies any fever, chills, nausea, vomiting, diarrhea, abdominal pain, chest pain, shortness of breath, cough, headache, dizziness, neck pain, back pain, or any other complaints. PMD: Dr. Godinez Time/Duration: > month Symptom Onset: Gradual Symptom Course: Unchanged Quality: Aching Activities at Onset: Light Context: Home Past Medical History - Provider Review Nursing Documentation Reviewed: Yes - Infectious Disease Hx of Infectious Diseases: None - Tetanus Immunization Tetanus Immunization: Unknown - Reproductive Menopause: Yes - Cardiac Hx Cardiac Disorders: Yes Hx Hypertension: Yes - Pulmonary Hx Respiratory Disorders: No - Neurological Hx Neurological Disorder: No - HEENT Hx HEENT Disorder: No - Renal Hx Renal Disorder: No - Endocrine/Metabolic Hx Endocrine Disorders: No - Hematological/Oncological Hx Blood Disorders: No Other/Comment: blood clot bilateral legs - Integumentary Hx Dermatological Disorder: No - Musculoskeletal/Rheumatological Hx Musculoskeletal Disorders: Yes Hx Arthritis: Yes - Gastrointestinal Hx Gastrointestinal Disorders: Yes Hx Gastroesophageal Reflux: Yes - Genitourinary/Gynecological Hx Genitourinary Disorders: No - Psychiatric Hx Psychophysiologic Disorder: No Hx Substance Use: No - Anesthesia Hx Anesthesia: No Hx Anesthesia Reactions: No Hx Malignant Hyperthermia: No Family/Social History - Physician Review Nursing Documentation Reviewed: Yes Family/Social History: Unknown Family HX Smoking Status: Never Smoked Hx Alcohol Use: No Hx Substance Use: No Allergies/Home Meds Allergies/Adverse Reactions: Allergies No Known Allergies Allergy (Verified 03/08/18 16:20) Home Medications: Home Meds Medication Instructions Recorded Confirmed RX: Cholecalciferol [Vitamin D 2,000 iu PO DAILY 12/10/16 11/08/17 1000 IU] RX: Atorvastatin Calcium 40 mg PO DAILY 05/03/17 11/08/17 RX: Esomeprazole Magnesium [Nexium] 40 mg PO DAILY 05/03/17 11/08/17 RX: Furosemide [Lasix] 40 mg PO DAILY 05/03/17 11/08/17 RX: traMADol [Ultram] 50 mg PO BID PRN 05/03/17 11/08/17 Review of Systems - Physician Review All systems were reviewed & negative as marked: Yes - Review of Systems Constitutional: absent: Fevers Respiratory: absent: SOB, Cough Cardiovascular: absent: Chest Pain Gastrointestinal: absent: Abdominal Pain, Nausea, Vomiting Musculoskeletal: Arthralgias (right knee pain ). absent: Back Pain, Neck Pain Neurological: absent: Headache, Dizziness Physical Exam Vital Signs Reviewed: Yes Vital Signs Temp Resp BP Pulse Ox 06/26/18 18:58 98.7 F 18 146/91 H 97 Temperature: Afebrile Blood Pressure: Normal Respiratory Rate: Normal Appearance: Positive for: Well-Appearing, Non-Toxic, Comfortable Pain Distress: None Mental Status: Positive for: Alert and Oriented X 3 - Systems Exam Head: Present: Atraumatic, Normocephalic Pupils: Present: PERRL Extroacular Muscles: Present: EOMI Conjunctiva: Present: Normal Neck: Present: Normal Range of Motion Respiratory/Chest: Present: Clear to Auscultation, Good Air Exchange. No: Respiratory Distress, Accessory Muscle Use Cardiovascular: Present: Regular Rate and Rhythm, Normal S1, S2. No: Murmurs Abdomen: No: Tenderness, Distention, Peritoneal Signs Back: Present: Normal Inspection Upper Extremity: Present: Normal Inspection. No: Cyanosis, Edema Lower Extremity: Present: NORMAL PULSES, Normal ROM, Tenderness (mild right knee tenderness), Neurovascularly Intact. No: Edema, Deformity Neurological: Present: GCS=15, CN II-XII Intact, Speech Normal Skin: Present: Warm, Dry, Normal Color. No: Rashes Psychiatric: Present: Alert, Oriented x 3, Normal Insight, Normal Concentration Medical Decision Making ED Course and Treatment: 06/26/18 19:13 Impression: 82 year old female presents to the Emergency Department complaining of right knee pain. Plan: -- Toradol -- Reassess and disposition Prior Visits: Notes and results from previous visits were reviewed. Progress Notes: 06/26/18 19:13 X-ray of right knee performed on 03/05/18 reviewed, which showed: Moderate tricompartmental degenerative osteoarthrosis, worse in the medial compartment. 06/26/18 20:13 chorbic pain no new trauma no indicatio nfor repeat imaging advise outpt fu. - Medication Orders Current Medication Orders: Discontinued Medications Ketorolac Tromethamine (Toradol) 30 mg IM STAT STA Stop: 06/26/18 19:14 - Scribe Statement The provider has reviewed the documentation as recorded by the Scribe Don Elena. All medical record entries made by the Scribe were at my direction and personally dictated by me. I have reviewed the chart and agree that the record accurately reflects my personal performance of the history, physical exam, medical decision making, and the department course for this patient. I have also personally directed, reviewed, and agree with the discharge instructions and disposition. Disposition/Present on Arrival - Present on Arrival Any Indicators Present on Arrival: No History of DVT/PE: Yes History of Uncontrolled Diabetes: No Urinary Catheter: No History of Decub. Ulcer: No History Surgical Site Infection Following: None - Disposition Have Diagnosis and Disposition been Completed?: Yes Diagnosis: Chronic knee pain Disposition: HOME/ ROUTINE Disposition Time: 06:00 Patient Problems: Current Active Problems Problem Status Onset Chronic knee pain Acute Condition: STABLE Discharge Instructions (ExitCare): Chronic Pain (DC), Chronic Knee Pain Additional Instructions: please see specialist. you will need further testing as an outpatient. Prescriptions: RX: Naproxen 500 mg PO BID PRN #14 tablet PRN Reason: Pain, Mild (1-3) Forms: [employer] ([place])
[2018-06-26 20:59] VITALS: BP 142/89; PULSE 68; RESP 17; O2SAT 100
== END 2018-06-26 19:45 | disposition home or self-care (01) ==
LOC: ED 18:27
DX: M25.561 Pain in right knee (principal); G89.29 Other chronic pain
CPT/HCPCS: 96372; 99283; J1885

== ENCOUNTER 2018-08-29 17:25 | Emergency (ER) | payer MEDICARE ==
[2018-08-29 17:30] VITALS: BMI 23.3
[2018-08-29 17:35] VITALS: BP 169/80; PULSE 64; RESP 18; TEMP 98.3; O2SAT 96
== END 2018-08-30 05:00 | disposition left against medical advice (07) ==
LOC: ED 17:25
DX: Z02.89 Encounter for other administrative examinations (principal); M79.606 Pain in leg, unspecified